=== PATIENT | female | born 1990 | race Caucasian/White ===

== ENCOUNTER → 2017-08-30 | Outpatient (CLI) | payer BC ==
[~2017-08-30] MED LIST: CIPR-225 PO; CIPR500T4 PO; DOCU-143 PO; ESCI20TA45 PO; ETHY1TAB3 PO; HYDR-3812 PO; KETO10TA PO; METR500T PO; METR500T21 PO; NARA2.5T2 PO; TOPI200C6 PO
--- NOTE | 2017-08-30 09:19 | Diagnostic Imaging Report ---
PROCEDURE: US Gallbladder. TECHNIQUE: Multiple real-time grayscale images were obtained over the right upper quadrant in various projections. INDICATION: Right upper quadrant abdominal pain with vomiting. FINDINGS: The pancreas is largely obscured by bowel gas. The liver is fairly homogeneous with no focal lesion. Hepatopedal flow in the portal vein seen. The CBD is 2 mm in caliber. The gallbladder demonstrates no stones or wall thickening. No pericholecystic fluid is seen. Sonographic Hillman sign is reportedly negative. The right kidney is 11.2 CM in length. No hydronephrosis. No fluid collection is seen in the upper abdomen. IMPRESSION: Unremarkable exam. Dictated by: Dictated on workstation # [id number]
== END ==
LOC: RAD 08:25
PROVIDERS: ATTEND Surgery
DX: R10.11 Right upper quadrant pain (principal); R11.10 Vomiting, unspecified
CPT/HCPCS: 76705

== ENCOUNTER → 2017-08-31 | Outpatient (CLI) | payer BC ==
[~2017-08-31] MED LIST changes: +CATHETER FLUSH 10 ML SYR IV PRN
--- NOTE | 2017-08-31 13:05 | Diagnostic Imaging Report ---
EXAMINATION: HIDA with EF measurements Indication: Abdominal pain TECHNIQUE: After the intravenous administration of 5.5 mCi of Tc 99m Choletec, imaging over the abdomen was obtained. This was followed by administration of Ensure orally to stimulate intrinsic CCK secretion, followed by continued imaging with ejection fraction measured. FINDINGS: There is homogeneous uptake in the liver with prompt bile duct and gallbladder filling seen. Bowel activity is seen at 50 minutes. Based on further imaging and gallbladder area of interest activity measurements after the administration of Ensure, the gallbladder ejection fraction is estimated at 30%. IMPRESSION: 1. Normal hepatobiliary uptake and Gallbladder filling. 2. Biliary dyskinesia. Reduced gallbladder ejection fraction. Dictated by: Dictated on workstation # [id number]
--- NOTE | 2017-09-01 08:47 | Physician Query-Final Dx ---
ZAINAB SINGH 09/01/17 0847: Clinic Account Progress/Dx Physician Query: Please specify the site of the patients abd pain thank you Date of Service Aug 31, 2017 at 09:21 BALA VICENTE DO 09/14/17 1133: Clinic Account Progress/Dx DIAGNOSIS: Diagnosis ruq abdominal pain ZAINAB SINGH Sep 01, 2017 08:47 BALA VICENTE DO Sep 14, 2017 11:33
== END ==
LOC: CARD 09:21
PROVIDERS: ATTEND Surgery
DX: K82.8 Other specified diseases of gallbladder (principal)
CPT/HCPCS: 78227

== ENCOUNTER 2017-09-01 09:56 | Outpatient (CLI) | payer BC ==
[~2017-09-01] VITALS: Ht 172.7 cm; Wt 54.4 kg
[~2017-09-01 09:56] MED LIST changes: -CATHETER FLUSH 10 ML SYR IV PRN
[2017-09-02] MEDS ORDERED: DOCU-143 PO (11:31)
[2017-09-02] MEDS ORDERED: HYDR-3812 PO (11:31)
== END 2017-09-01 10:16 ==
LOC: PREOP 09:56
PROVIDERS: ATTEND Surgery
DX: Z01.818 Encounter for other preprocedural examination (principal); K82.8 Other specified diseases of gallbladder

== ENCOUNTER 2017-09-02 08:39 | Day surgery (SDC) | payer BC ==
[~2017-09-02] VITALS: Ht 172.7 cm; Wt 54.4 kg
[2017-09-02] MEDS ORDERED: CLINDAMYCIN 600 MG/NS 50 ML IVPB IV ONE ×2 (09:00)
[2017-09-02 09:12] VITALS: BP 103/74
[2017-09-02] MEDS ORDERED: BUPIVACAINE 0.5% 30 ML (SENSORCAINE) VIAL ONE (09:28)
[2017-09-02] MEDS ORDERED: LIDOCAINE 1% INJ 20 ML (XYLOCAINE) VIAL ONE (09:28)
[2017-09-02] MEDS ORDERED: DEXAMETHASONE 10 MG/ML (DECADRON) 1 ML VIAL ONE (10:10)
[2017-09-02] MEDS ORDERED: ROCURONIUM 50 MG/5 ML (ZEMURON) VIAL IV ONE (10:10)
[2017-09-02] MEDS ORDERED: SEVOFLURANE (ULTANE) 15 ML INHAL SOLN ONE ×4 (10:10→11:28)
[2017-09-02] MEDS ORDERED: ONDANSETRON 4 MG/2 ML (SDV) Z0FRAN ONE (10:10)
[2017-09-02] MEDS ORDERED: MIDAZOLAM 2 MG/2 ML (VERSED) VIAL ONE (10:10)
[2017-09-02] MEDS ORDERED: proPOfol 200 MG/20 ML (DIPRIVAN) VIAL IV ONE ×2 (10:10→12:50)
[2017-09-02] MEDS ORDERED: LIDOCAINE PF 2% 5 ML (XYLOCAINE) VIAL ONE (10:10)
[2017-09-02] MEDS ORDERED: fentaNYL INJECTION 100 MCG/2 ML AMP ONE (10:10)
--- NOTE | 2017-09-02 10:10 | Progress Note-Pre Operative ---
Pre-Operative Progress Note H&P Reviewed The H&P was reviewed, patient examined and no changes noted. Date Seen by Provider: Sep 02, 2017 Time Seen by Provider: 10:09 Date H&P Reviewed: Sep 02, 2017 Time H&P Reviewed: 10:09 Pre-Operative Diagnosis: biliary dyskinesia BALA VICENTE DO Sep 02, 2017 10:09
[2017-09-02 10:15] LABS: MEAN PLATELET VOLUME 10.4 FL (7.4-10.4); RED BLOOD COUNT 4.47 10^6/uL (4.35-5.85); RED CELL DISTRIBUTION WIDTH 12.7 % (10.0-14.5); WHITE BLOOD COUNT 4.6 10^3/uL (4.3-11.0)
[2017-09-02] MEDS: LACTATED RINGERS 1,000 ML IV PRN ×2 (10:45→12:19)
[2017-09-02] MEDS ORDERED: NEOSTIGMINE (BLOXIVERZ ) 1 MG/1ML 10 ML VIAL ONE (11:28)
[2017-09-02] MEDS ORDERED: GLYCOPYRROLATE 0.2 MG/ML (ROBINUL) 2 ML VIAL ONE (11:28)
[2017-09-02] MEDS ORDERED: LACTATED RINGERS 1,000 ML IV ONE (11:28)
--- NOTE | 2017-09-02 11:30 | Progress Note-Post Operative ---
Post-Operative Progess Note Surgeon (s)/Test Specialist (s) Surgeon BALA VICENTE DO Test Specialist: Dr. Tyler Pre-Operative Diagnosis biliary dyskinesia Post-Operative Diagnosis same Procedure & Operative Findings Date of Procedure 09/02/17 Procedure Performed/Findings lap nolan c ioc Anesthesia Type gen Estimated Blood Loss Estimated blood loss (mL): min Specimens/Packing Specimens Removed gallbladder BALA VICENTE DO Sep 02, 2017 11:30
[2017-09-02] MEDS ORDERED: HYDR-3812 PO (11:31)
[2017-09-02] MEDS ORDERED: DOCU-143 PO (11:31)
--- NOTE | 2017-09-02 11:35 | Discharge Inst-Simple/Standard ---
Discharge Inst-Standard Discharge Medications New, Converted or Re-Newed RX: RX on Chart Patient Instructions/Follow Up Plan of Care/Instructions/FU: 2 weeks Puneet Activity as Tolerated: No Discharge Diet: Regular Diet Other Inst to Patient Follow up Appt: Make appointment for 2 weeks. Instructions: No lifting greater than 10 pounds. No strenuous activity. May shower in 24 hours, no tub bath or soaking. Use incentive spirometer at home as directed. No Smoking wound care you have special glue over incisions it will fall off on its own Symptoms to Report: Appetite Changes, Extremity Discoloration, Numbness/Tingling, Swelling Increased , Bleeding Excessive, Eyesight Changes, Pain Increased, Urine Color Change, Constipation(Persistent), Fever over 101 degree F, Pain/Pressure in chest, Urinating Difficulty, Cough Up/Vomit Blood, Heart Beat Irreg/Pounding, Pain/ Pressure in jaw, Vaginal Bleeding Increase, Cramps in feet or legs, Lightheadedness, Pain/Pressure in shoulder, Diarrhea(Persistent), Memory Changes Suddenly, Questions/Concerns, Weight gain consecutive days, Dizziness/ Fainting, Nausea/Vomiting, Shortness of Breath, Weight gain over 2 pounds. If eyes or skin turn yellow notify physician. If questions or concerns contact your physician Or seek help at emergency department. BALA VICENTE DO Sep 02, 2017 11:35
[2017-09-02] MEDS ORDERED: fentaNYL INJECTION 100 MCG/2 ML AMP IVP PRN (12:00)
[2017-09-02] MEDS ORDERED: ONDANSETRON 4 MG/2 ML (SDV) Z0FRAN IVP PRN (12:00)
[2017-09-02] MEDS: morphine INJ 10 MG/ML 1ML (SYR OR VIAL) IVP PRN ×2 (12:01→12:08)
[2017-09-02] MEDS ORDERED: PROMETHAZINE INJ 25 MG/ML (PHENERGAN) AMP ONE (12:14)
[2017-09-02] MEDS: PROMETHAZINE INJ 25 MG/ML (PHENERGAN) AMP IVP PRN ×2 (12:26→12:40)
[2017-09-02 13:21] VITALS: BP 102/55
[2017-09-02] MEDS ORDERED: HYDROcodone/APAP 5 MG/325 MG (LORTAB) TAB ONE (13:38)
[2017-09-02] MEDS ORDERED: HYDROcodone/APAP 5 MG/325 MG (LORTAB) TAB PO PRN (13:45)
[2017-09-02 14:03] VITALS: BP 105/58
--- NOTE | 2017-09-02 17:16 | Diagnostic Imaging Report ---
EXAMINATION: Intraoperative cholangiogram. 3 cc of Omnipaque 300 was administered intravenously. FLUOROSCOPY TIME: Fluoroscopy time utilized was 6 seconds. FINDINGS: There is a normal caliber of the CBD with no filling defect or evidence of obstruction. Prompt passage of contrast into the duodenum is seen. Partially visualized intrahepatic bile ducts appear unremarkable. IMPRESSION: No evidence of CBD stones or obstruction. Dictated by: Dictated on workstation # [id number]
--- NOTE | 2017-09-03 04:56 | OPERATIVE REPORT ---
DATE OF SERVICE: 09/02/2017 PREOPERATIVE DIAGNOSIS: Biliary dyskinesia. POSTOPERATIVE DIAGNOSIS: Biliary dyskinesia. PROCEDURE: Laparoscopic cholecystectomy with intraoperative cholangiogram. SURGEON: Bala Teixeira DO. SAW GRINDER: Dr. Tyler, assisted in retraction, dissection and closure. ESTIMATED BLOOD LOSS: Minimal. COMPLICATIONS: None. ANESTHESIA: General. INDICATIONS: The patient is a 26-year-old female, who has been having right upper quadrant abdominal pain. The patient stated that food makes it worse. She had a normal gallbladder ultrasound and a HIDA scan that had an ejection fraction of 30%, which is consistent with biliary dyskinesia. She understands risks and benefits of procedure and wished to proceed with the procedure. Consent was signed and on the chart. DESCRIPTION OF PROCEDURE: The patient was taken to the operating suite. She was prepped and draped in sterile fashion. Surgical pause was performed. Incision was made at the umbilicus. Cautery was used to taken down to the fascia, which was then scored, grasped and elevated. The abdomen was then entered. A 0 Vicryl suture was placed in [id number] fashion for closure at the end of the case. A balloon trocar was placed, 12 mm in diameter was placed through the incision and pneumoperitoneum was achieved. Under direct visualization of the laparoscope, a 5 mm trocar was placed in the subxiphoid region and two 5 mm trocars were placed in the right upper quadrant. Gallbladder was grasped, elevated. The cystic duct and cystic artery were then dissected around. Clips were placed on the proximal and distal portion of the cystic artery and a clip was placed on the distal portion of the cystic duct. The duct was then partially transected. The arrow catheter was inserted and cholangiogram was then performed. There were no filling defects and contrast made its way into the duodenum without difficulty. The catheter was then removed. Clips were placed on the proximal portion of the cystic duct, and the duct and artery were then completely transected. The hook cautery was then used to remove the gallbladder from the gallbladder fossa achieving hemostasis. Once removed, it was placed in an Endobag and removed through the 12 mm trocar site. The abdomen was then irrigated with copious amounts of irrigation and suctioned. The abdomen was then reinspected. The abdomen was then desufflated. The trocars were removed. The 0 Vicryl which was placed earlier was then closed. The skin was then closed using 4-0 Monocryl. The area was then washed and dried, and SwiftSet was then placed over incisions. The patient tolerated the procedure well without any complications. She was taken to recovery room in stable condition. Job ID: [id number] DocumentID: [id number] Dictated Date: 09/02/2017 21:22:56 Cinema Operator Date: 09/03/2017 04:55:54 Dictated By: BALA TEIXEIRA DO
== END 2017-09-02 14:08 | disposition home or self-care (01) ==
LOC: SDC 08:39
PROVIDERS: ATTEND Surgery
DX: K81.1 Chronic cholecystitis (principal); F41.9 Anxiety disorder, unspecified; G43.909 Migraine, unspecified, not intractable, without status migrainosus; Z79.899 Other long term (current) drug therapy
CPT/HCPCS: 36415; 84703; 85027; 87081; 94664

== ENCOUNTER → 2018-09-15 | Outpatient (CLI) | payer BC ==
[~2018-09-15] MED LIST changes: +ACHD5005 PO; -HYDR-3812 PO; +METR-197 PO; -METR500T21 PO
--- NOTE | 2018-09-15 14:47 | Diagnostic Imaging Report ---
PROCEDURE: US abdomen complete. TECHNIQUE: Multiple Real-time grayscale images were obtained over the abdomen in various projections. INDICATION: Right upper quadrant pain. FINDINGS: The liver parenchyma appears normal. The liver is not enlarged. The bile ducts are not dilated. The common duct measures 3 mm. The portal vein and inferior vena cava appear normal with Doppler sampling. The pancreas is normal. The spleen appears normal. The aorta is normal. Both kidneys are visualized and normal measuring 11 x 4.4 x 4.8 cm on the right and 10.3 x 3.7 x 4.8 cm on the left. There is no ascites. IMPRESSION: Normal abdominal ultrasound. Dictated by: Dictated on workstation # [id number]
== END ==
LOC: RAD 09:32
PROVIDERS: ATTEND Nurse Practitioner Family
DX: R10.11 Right upper quadrant pain (principal)
CPT/HCPCS: 76700

== ENCOUNTER 2018-09-29 05:29 | Outpatient (CLI) | payer BC ==
[~2018-09-29] VITALS: Ht 172.7 cm; Wt 54.4 kg
== END 2018-09-29 13:44 | disposition home or self-care (01) ==
LOC: PREOP 05:29
PROVIDERS: ATTEND Surgery
DX: Z01.818 Encounter for other preprocedural examination (principal)

== ENCOUNTER 2018-10-03 13:54 | Day surgery (SDC) | payer BC ==
[~2018-10-03] VITALS: Ht 172.7 cm; Wt 54.4 kg
--- OUTSIDE RECORDS SUMMARY | 2018-10-03 13:56 | XMS REPORT | Encounter Summary ---
Author Author [facility] Organization [facility] Address Unknown Phone Unavailable Care Team Providers Care Coronary Care Unit Nurse Name Role Phone Ehsan Christy MD Unavailable Trinity Lynch MD PCP Kobe Ramirez MD Unavailable Reason for Referral * Pain Authorization (Routine) Referred By Contact Referred To Contact Status Reason Specialty Diagnoses / [place] [address] [place] [address] New Request Diagnoses Chronic migraine P rocedures CHEMODENERVATION MUSCLE MIGRAINE Reason for Visit * Reason Comments Procedure BTX INJ#11 Migraine * Pain Authorization (Routine) Referred By Contact Referred To Contact Status Reason Specialty Diagnoses / [place] [address] [place] [address] Cmp Neurology Cl [facility] [place] [address] [place] [address] [place] [address] No Auth Needed Neurology Diagnoses Chronic migraine P rocedures CHEMODENERVATION MUSCLE MIGRAINE Encounter Details Care Team Description Date [place] [address] [place] [address] [phone] Chronic migraine (Primary Dx) 09/19/2018 Procedure visit [facility] Neurology [facility] [address] [place] [address] [address] [address] [place] [address] Social History Date Tobacco Use Types Packs/Day Years Used Never Smoker Smokeless Tobacco: Never Used Alcohol Use Drinks/Week oz/Week Comments No 0 Standard 0.0 drinks or equivalent Sex Assigned at Date Recorded Not on file Industry Job Start Date Occupation Not on file Not on file Not on file Travel End Travel History Travel Start No recent travel history available. as of this encounter Last Filed Vital Signs Time Taken Vital Sign Reading 09/19/2018 10:11 AM SALES ATTENDANT Blood Pressure 113/79 09/19/2018 10:11 AM SALES ATTENDANT Pulse 86 - Temperature - - Respiratory Rate - 09/19/2018 10:11 AM SALES ATTENDANT Oxygen Saturation 100% - Inhaled Oxygen - Concentration - Weight - - Height - - Body Mass Index - in this encounter Patient Instructions * Patient Instructions* Kobe Ramirez MD - 09/19/2018 10:33 AM SALES ATTENDANT Please call STEFANY Malloy @ [phone] for any questions or concerns related to Botox. It is patient's responsibility to notify the Patient Registration Department @ [phone] or [phone] of any insurance changes, at least 30 days prior to any Botox injection appointment, to allow for prior authorization update. Do not massage or apply pressure on the treated area for 4hrs after treatment since Botox may migrate from areas of effectiveness. Do not lie down for 4 hours after treatment. This is to avoid the risk of pressure on the treated areas. Avoid rigorous exercise/activities, extensive heat (eg. sauna, hot tub, tanning) and sun exposure, and alcoholic beverages for the first 24 hours after treatment. This may cause temporary redness, swelling, and/or itching at the injection sites. Feel free to shower and go about most other daily activities. You may experience a mild headache after Botox. Should this occur, we recommend you avoid aspirin or aspirin containing products. You may opt instead to use acetaminophen, and/or cool compresses. Cold compresses may be used 10 minutes on 10 minutes off to reduce swelling 2-3 times per day during the first 1-2 days if needed. Note that any bumps or vu will go away in a few hours. If you do develop a bruise it will resolve like any other bruises you may have had in about a week. There is occasionally some mild pain, swelling, itching, or redness at the site of injection similar to most other injections. Redness may last for 1- 2 days, rarely longer. You may apply cool compresses or take acetaminophen to reduce swelling or discomfort. Please call the office with any questions or concerns. -- May do infusions: -- IVF NS 500ml x 1 -- Toradol 30mg IV x 1 -- Magnesium 1g IV x 1 -- Benadryl 25mg IV x 1 -- Compazine 10mg IV x1 +/- Depacon 500mg IV x 1 -- The patient will need a tank wagon driver. -- The patient will need CBC and CMP prior to infusions being scheduled to assure normal kidney, liver, and platelet functions. -- If the patient is unsure about status, will need testing prior to infusions. S ATTENDANT in this encounter Progress Notes * Kobe Ramirez MD - 09/19/2018 10:30 AM SALES ATTENDANT Subjective: Brigida Velez 27 y.o. female is here today for botox for chronic migraines. Botox No. 11. At last visit she had 4 total migraines with some wearing off in the last 1 week prior to next injection. She says that she was down to 2-3 migraines per month until where she had 5 days in a row. Any chance you are or trying to become ? No. Do you understand the risks and benefits of botox for migraine and wish to proceed? Yes. Vitals: 09/19/18 1011 BP: 113/79 Pulse: 86 SpO2: 100% Botox Injection Procedure Previous Injection Date: 06/27/18 Informed consent given verbally to the patient today to include, but not limited to: Most common side effects: neck pain, headache, eyelid ptosis, migraine, muscular weakness, musculoskeletal stiffness, bronchitis, injection-site pain, musculoskeletal pain, myalgia, facial paresis, hypertension, and muscle spasms; infection at injections sites, bruising, bleeding Most serious side effects/risks: anaphylaxis, dysphagia, pneumonia, arrhythmia, myocardial infarction, and in some cases, spontaneous Confirmed: patient, procedure, side, site, safety procedures followed. Performed by: Kobe Ramirez MD. Preparation: no contraindications noted to Botox, possible medications prior to procedure Emla cream 2.5%/2.5% - 2g topically prior to procedure, Tylenol, Preparation of site with alcohol Procedure performed: Indication: Chronic Migraine Headaches Medication: Onabotulinum toxin A 2.5 ml/100 units (Botulinum Toxin 5 units per 0.1mL, 200 units prepared, 155 units used, 45 units of waste) Location: PREEMPT protocol ([facility], and coauthors. Cephalalgia, 2010;30:793) Muscles/Sites Injected A - Bilateral Car Head Liner Installer - 10 units divided in 2 sites B - Midline Procerus - 5 units in 1 site C - Bilateral Frontalis - 20 units divided in 4 sites D - Bilateral Temporalis - 40 units divided in 8 sites E - Bilateral Occipitalis - 30 units divided in 6 sites F - Bilateral Cervical Paraspinals - 20 units divided in 4 sites G - Bilateral Trapezius - 30 units divided in 6 sites Total Dose - 155 Units divided in 31 sites Lot/Expiration: [id number], 01/2021; [id number], 03/2021 Procedure tolerated: well. Complications: none. Diagnosis Chronic Migraine Headaches Course: Progressing as expected. Counseled: Patient/Family, Regarding diagnosis, Regarding treatment, Regarding medications. If any serious side effects occur, the patient has been instructed to go to the nearest emergency room and call our office. Follow up: as scheduled - call with any concerns S ATTENDANT in this encounter Miscellaneous Notes * Addendum Note - Mellissa Ann RN - 09/19/2018 10:30 AM SALES ATTENDANT Addended by: MELLISSA ANN on: 09/19/2018 10:55 AM Modules accepted: Orders S ATTENDANT in this encounter Plan of Treatment Order Schedule Name Priority Associated Diagnoses Ordered: 09/19/2018 [facility] BOTOX Routine Chronic migraine Ordered: 09/19/2018 CHEMODENERVATION MUSCLE MIGRAINE Routine Chronic migraine as of this encounter Visit Diagnoses Diagnosis Chronic migraine - Primary Chronic migraine without aura, without mention of intractable migraine without mention of status migrainosus in this encounter Administered Medications Action Date Dose Rate Site Medication Order MAR Action 09/19/2018 10:44 AM SALES ATTENDANT 200 Units ONAbotulinum toxin (BOTOX) syringe 200 Given Units 200 Units, SEE ADMIN INSTRUCTIONS, ONCE, 1 dose, 09/19/18 at 1045, 155 units given, 45 units wasted, in this encounter
--- OUTSIDE RECORDS SUMMARY | 2018-10-03 13:56 | XMS REPORT | Clinical Summary ---
Author Author [facility] Organization [facility] Address Unknown Phone Unavailable Care Team Providers Care Fence Post Driver Name Role Phone Ehsan Christy MD Unavailable Trinity Lynch MD PCP Kobe Ramirez MD Unavailable Source Comments Some departments are not documenting in the electronic medical record. If you do not see the information that you expected, contact Release of Information in the Health Information Management department at [phone] for further assistance in locating additional records.[facility] Allergies Comments Active Allergy Reactions Severity Noted Date Cefdinir HIVES 08/08/2013 Sulfa (Sulfonamide ANAPHYLAXIS, High 04/01/2016 Antibiotics) HIVES Medications End Date Status Medication Sig Dispensed Refills Start Date Active ethynodiol diac/ethinyl Take 1 Tab by 0 estradiol 1/35 (ZOVIA-28, mouth daily. KELNOR-28, DEMULEN-28) 1 mg/35 mcg tablet Active escitalopram (LEXAPRO) 20 Take 20 mg by 0 mg tablet mouth daily. Active nabumetone (RELAFEN) 500 Take 2 Tabs 60 Tab 2 07/03/201 mg tablet by mouth 3 daily. Active naratriptan (AMERGE) 2.5 Take 2.5 mg 0 mg tablet by mouth as Needed. take 1 tab po at onset of HANNAH and 1 tab in 4 hrs if HANNAH remains. Active promethazine (PHENERGAN) Take 25 mg by 0 25 mg tablet mouth every 8 hours as needed for Nausea. Active ondansetron (ZOFRAN ODT) Take by 0 4 mg rapid dissolve mouth as tablet Needed for Nausea. Active ketorolac (TORADOL) 30 Inject 30 mg 0 mg/mL injection to area(s) as directed as Needed. Active acetaZOLAMIDE (DIAMOX) Take 1 tablet 30 tablet 0 250 mg tablet by mouth 7 twice daily. Active traMADol (ULTRAM) 50 mg Take one 30 tablet 0 tablet tablet by 8 mouth every 12 hours as needed for Pain. 09/19/2018 Discontinued traMADol (ULTRAM) 50 mg Take 1 tablet 20 tablet 0 tablet by mouth 8 every 12 hours as needed for Pain. Status Hospital, Clinic, or Ordered Dose Route Frequency Start End Date Other Facility Date Administered Medication Ended ONAbotulinum toxin 200 Units SEE ADMIN ONCE 09/19/20 (BOTOX) syringe 200 Units 18 8 Active Problems Problem Noted Date Foot pain, right 07/03/2013 Encounters Care Team Description Date Type Specialty Kobe Ramirez MD Chronic migraine (Primary Dx) 09/19/2018 Procedure visit Neurology from Last 3 Months Family History Medical History Relation Name Comments Hypertension Father Cancer Maternal Grandfather Stroke Maternal Grandfather Migraines Mother Cancer Other Stroke Other Dementia Paternal Grandfather Relation Name Status Comments Father Alive Maternal Grandfather Alive Maternal Grandmother Alive Mother Alive Other Paternal Grandfather Alive Paternal Grandmother Alive Social History Date Tobacco Use Types Packs/Day Years Used Never Smoker Smokeless Tobacco: Never Used Tobacco Cessation: Counseling Given: No Alcohol Use Drinks/Week oz/Week Comments No 0 Standard 0.0 drinks or equivalent Sex Assigned at Date Recorded Not on file Industry Job Start Date Occupation Not on file Not on file Not on file Travel End Travel History Travel Start No recent travel history available. Last Filed Vital Signs Time Taken Vital Sign Reading 09/19/2018 10:11 AM FREIGHT INSPECTOR Blood Pressure 113/79 09/19/2018 10:11 AM FREIGHT INSPECTOR Pulse 86 04/01/2016 7:58 AM CDT Temperature 36.6 C (97.9 F) - Respiratory Rate - 09/19/2018 10:11 AM FREIGHT INSPECTOR Oxygen Saturation 100% - Inhaled Oxygen - Concentration 04/04/2018 10:03 AM CDT Weight 55.6 kg (122 lb 9.6 oz) 04/04/2018 10:03 AM CDT Height 172.7 cm (5' 8") 04/04/2018 10:03 AM CDT Body Mass Index 18.64 Plan of Treatment Health Maintenance Due Date Last Done Comments PHYSICAL (COMPREHENSIVE) 1996 EXAM HIV SCREENING 2004 DTAP/TDAP VACCINES (1 - 2007 Tdap) CERVICAL CANCER SCREENING 2010 INFLUENZA VACCINE 05/17/2018 Results Not on filefrom Last 3 Months Insurance Payer Benefit Subscriber ID Type Phone Address Plan / Group [facility] xxxxxxxxxxxx [facility] Advance Directives Patient has advance care planning documents on file. For more information, please contact: [facility] [address] [place] [address]
[2018-10-03] MEDS ORDERED: LACTATED RINGERS 1,000 ML IV ONE (14:24)
[2018-10-03] MEDS ORDERED: LACTATED RINGERS 1,000 ML IV SCH (14:30)
[2018-10-03 14:54] VITALS: BP 109/85
[2018-10-03] MEDS ORDERED: LACTATED RINGERS 1,000 ML IV STA (14:56)
[2018-10-03] MEDS ORDERED: HURRICAINE EXT TUBE (BENZOCAINE) XX PRN (15:00)
[2018-10-03] MEDS ORDERED: PROPOFOL INJECTION 0 ML IV ONE (15:14)
[2018-10-03] MEDS ORDERED: MIDAZOLAM 2 MG/2 ML (VERSED) VIAL ONE ×2 (15:15→15:47)
--- NOTE | 2018-10-03 15:20 | Progress Note-Pre Operative ---
Pre-Operative Progress Note H&P Reviewed The H&P was reviewed, patient examined and no changes noted. Date Seen by Provider: Oct 03, 2018 Time Seen by Provider: 15:20 Date H&P Reviewed: Oct 03, 2018 Time H&P Reviewed: 15:20 Pre-Operative Diagnosis: ruq abdominal pain BALA VICENTE DO Oct 03, 2018 15:20
[2018-10-03] MEDS ORDERED: HURRICAINE EXT TUBE (BENZOCAINE) ONE (15:32)
[2018-10-03] MEDS ORDERED: proPOfol 200 MG/20 ML (DIPRIVAN) VIAL IV ONE (15:47)
[2018-10-03] MEDS ORDERED: PANT40TA2 PO (16:00)
--- NOTE | 2018-10-03 16:01 | Discharge Inst-Simple/Standard ---
Discharge Inst-Standard Discharge Medications New, Converted or Re-Newed RX: Transmitted to Pharmacy Patient Instructions/Follow Up Plan of Care/Instructions/FU: 2weeks harley Activity as Tolerated: Yes Discharge Diet: Regular Diet BALA VICENTE DO Oct 03, 2018 16:01
[2018-10-03 16:10] VITALS: BP 108/63
--- NOTE | 2018-10-03 16:12 | Anesthesia-General Post-Op ---
MAC Patient Condition Mental Status/LOC: Same as Preop Cardiovascular: Satisfactory Nausea/Vomiting: Absent Respiratory: Satisfactory Pain: Controlled Complications: Absent Post Op Complications Complications None Follow Up Care/Instructions Patient Instructions None needed. Anesthesiology Discharge Order Discharge Order Patient is doing well, no complaints, stable vital signs, no apparent adverse anesthesia problems. No complications reported per nursing. ANKIT CRAIG CRNA Oct 03, 2018 16:12
[2018-10-03] MEDS ORDERED: ONDANSETRON 4 MG/2 ML (SDV) Z0FRAN ONE (16:30)
[2018-10-03 16:50] VITALS: BP 118/79
[2018-10-03 16:58] VITALS: BP 118/79
[2018-10-03] MEDS ORDERED: ONDANSETRON 4 MG/2 ML (SDV) Z0FRAN IVP ONE (17:00)
--- NOTE | 2018-10-04 04:19 | OPERATIVE REPORT ---
DATE OF SERVICE: 10/03/2018 PREOPERATIVE DIAGNOSIS: Right upper quadrant abdominal pain. POSTOPERATIVE DIAGNOSIS: Gastritis. PROCEDURE: EGD with biopsy. SURGEON: Bala Teixeira DO ANESTHESIA: Per ROUGH PATCHER. ESTIMATED BLOOD LOSS: None. COMPLICATIONS: None. INDICATIONS: The patient is a 27-year-old female with right upper quadrant abdominal pain. She has had previous cholecystectomy. She understands risks and benefits of procedure and wished to proceed with procedure. Consent was signed and on the chart. DESCRIPTION OF PROCEDURE: The patient was taken to the endoscopy suite, placed in left lateral recumbent position. Timeout was performed. Scope was inserted into the mouth, down the esophagus, stomach and into the duodenum without difficulty. There were no polyps, masses or ulcerations in the duodenum. Scope was slowly retracted back into the stomach where it was further insufflated. Erythematous changes consistent with gastritis and a biopsy of the antrum was obtained just very irritated mucosa. Scope was retroflexed noting no other pathology except for the gastritis. Scope was then returned to its normal position, slowly withdrawn to the distal esophagus, had normal appearance. No polyps, mass or ulcerations. The scope was slowly retracted back until completely removed. The patient tolerated procedure well without complications. She was taken to the recovery room in stable condition. RECOMMENDATIONS: The patient will be started on Protonix 40 mg daily. We will see how she is doing in two weeks. We will await biopsy results. Further recommendations pending. Job ID: [id number] DocumentID: [id number] Dictated Date: 10/03/2018 16:03:05 Club Concierge Date: 10/04/2018 04:19:11 Dictated By: BALA TEIXEIRA DO
== END 2018-10-03 16:58 | disposition home or self-care (01) ==
LOC: ENDO 13:54
PROVIDERS: ATTEND Surgery
DX: K29.70 Gastritis, unspecified, without bleeding (principal); F41.9 Anxiety disorder, unspecified; Z79.899 Other long term (current) drug therapy
CPT/HCPCS: 84703

== ENCOUNTER → 2020-01-14 | Outpatient (CLI) | payer BC ==
[~2020-01-14] MED LIST changes: +METR-145 PO; -METR-197 PO; +PANT40TA2 PO
[2020-01-14 14:16] LABS: BASOPHILS % (AUTO) 0 % (0-10); EOSINOPHILS # (AUTO) 0.1 10^3/uL (0.0-0.3); EOSINOPHILS % (AUTO) 2 % (0-10); HEMATOCRIT 43 % (35-52); LYMPHOCYTES # (AUTO) 2.8 X 10^3 (1.0-4.0); LYMPHOCYTES % (AUTO) 36 % (12-44); MEAN CORPUSCULAR HEMOGLOBIN 29 PG (25-34); MEAN CORPUSCULAR HGB CONC 35 G/DL (32-36); MEAN CORPUSCULAR VOLUME 84 FL (80-99); MEAN PLATELET VOLUME 9.9 FL (7.4-10.4); MONOCYTES # (AUTO) 0.3 X 10^3 (0.0-1.0); MONOCYTES % (AUTO) 4 % (0-12); NEUTROPHILS # (AUTO) 4.5 X 10^3 (1.8-7.8); NEUTROPHILS % (AUTO) 58 % (42-75); PLATELET COUNT 240 10^3/uL (130-400); RED CELL DISTRIBUTION WIDTH 13.3 % (10.0-14.5); WHITE BLOOD COUNT 7.7 10^3/uL (4.3-11.0)
--- NOTE | 2020-01-14 15:08 | Diagnostic Imaging Report ---
EXAMINATION: Chest, PA and lateral views INDICATION: Respiratory symptoms. Concern for coronavirus. COMPARISON: 09/03/2013 FINDINGS: The lungs are clear and the pulmonary vasculature is normal. No pneumothorax or pleural effusion. Heart size and mediastinal contours are normal. No acute osseous abnormality is identified. IMPRESSION: Normal exam. No radiographic evidence of acute chest disease. Dictated by: Dictated on workstation # [id number]
== END ==
LOC: RAD 14:03
PROVIDERS: ATTEND Nurse Practitioner Family
DX: R06.00 Dyspnea, unspecified (principal); R05 Cough
CPT/HCPCS: 36415; 71046; 85025; 86141; 87430; 87635; 87804

== ENCOUNTER → 2020-01-17 | Outpatient (CLI) | payer BC ==
[~2020-01-17] MED LIST changes: +HOLD METFORMIN - RECEIVED CONTRAST 20 ML VIAL IV SCH; +IOHEXOL 350 MG/ML 100 ML (OMNIPAQUE 350) VIAL IV ONE; +NS 100 ML (IVPB) BAG IV ONE
--- NOTE | 2020-01-17 10:55 | Diagnostic Imaging Report ---
PROCEDURE: CT angiography of the chest with contrast. TECHNIQUE: Multiple contiguous axial images were obtained through the chest after uneventful bolus administration of intravenous contrast. 3D reconstructed CTA MIP acquisitions were also performed. Auto Exposure Controls were utilized during the CT exam to meet ALARA standards for radiation dose reduction. INDICATION: Cough, dyspnea COMPARISON: Radiograph dated 01/14/2020 FINDINGS: No significant adenopathy within the chest. No aneurysmal dilatation of the thoracic aorta. No aortic dissection. The heart is within normal limits in size. No pericardial effusion. No pleural effusion. No pneumothorax. Calcific granuloma within the left upper lobe. The lungs are otherwise clear. The trachea is patent. No significant filling defects within the central or segmental pulmonary arteries. The visualized upper abdomen is unremarkable. No acute osseous abnormality. IMPRESSION: No acute abnormality. In particular, no significant pulmonary embolus. Dictated by: Dictated on workstation # [id number]
== END ==
LOC: RAD 10:10
PROVIDERS: ATTEND Nurse Practitioner Family
DX: R05 Cough (principal); R06.00 Dyspnea, unspecified
CPT/HCPCS: 71275

== ENCOUNTER → 2020-02-26 | Outpatient (CLI) | payer BC ==
[~2020-02-26] MED LIST changes: -HOLD METFORMIN - RECEIVED CONTRAST 20 ML VIAL IV SCH; -IOHEXOL 350 MG/ML 100 ML (OMNIPAQUE 350) VIAL IV ONE; -NS 100 ML (IVPB) BAG IV ONE
== END ==
LOC: LAB 16:23
PROVIDERS: ATTEND Nurse Practitioner Family
DX: Z20.828 Contact with and (suspected) exposure to other viral communicable diseases (principal); Z87.09 Personal history of other diseases of the respiratory system
CPT/HCPCS: 36415

== ENCOUNTER 2020-07-03 10:52 | Outpatient (RCR) | payer BC | END 2020-10-01 | disposition home or self-care (01) | LOC: CARD 10:52 | PROVIDERS: ATTEND Internal Medicine Interventional Cardiology | DX: I47.1 Supraventricular tachycardia (principal); R00.2 Palpitations; R55 Syncope and collapse | CPT/HCPCS: 93306 ==

== ENCOUNTER → 2020-08-08 | Outpatient (CLI) | payer BC ==
[2020-08-08 14:55] LABS: BASOPHILS % (AUTO) 1 % (0-10); EOSINOPHILS # (AUTO) 0.1 10^3/uL (0.0-0.3); EOSINOPHILS % (AUTO) 1 % (0-10); HEMATOCRIT 41 % (35-52); HEMOGLOBIN 13.4 g/dL (11.5-16.0); LYMPHOCYTES # (AUTO) 1.9 10^3/uL (1.0-4.0); LYMPHOCYTES % (AUTO) 28 % (12-44); MEAN CORPUSCULAR HEMOGLOBIN 29 pg (25-34); MEAN CORPUSCULAR HGB CONC 33 g/dL (32-36); MEAN CORPUSCULAR VOLUME 87 fL (80-99); MEAN PLATELET VOLUME 9.7 fL (9.0-12.2); MONOCYTES # (AUTO) 0.3 10^3/uL (0.0-1.0); MONOCYTES % (AUTO) 4 % (0-12); NEUTROPHILS # (AUTO) 4.4 10^3/uL (1.8-7.8); NEUTROPHILS % (AUTO) 66 % (42-75); PLATELET COUNT 259 10^3/uL (130-400); WHITE BLOOD COUNT 6.6 10^3/uL (4.3-11.0)
[2020-08-08 15:17] LABS: ALANINE AMINOTRANSFERASE 12 U/L (0-55); ALBUMIN 4.3 GM/DL (3.2-4.5); ALKALINE PHOSPHATASE 26 U/L (40-136); BILIRUBIN,TOTAL 0.4 MG/DL (0.1-1.0); BUN/CREATININE RATIO 17; CALCIUM 8.7 MG/DL (8.5-10.1); CARBON DIOXIDE 25 MMOL/L (21-32); CHLORIDE 108 MMOL/L (98-107); CREATININE SERUM 0.83 MG/DL (0.60-1.30); GFR ESTIMATED > 60; GLUCOSE 128 MG/DL (70-105); MAGNESIUM 2.1 MG/DL (1.6-2.4); POTASSIUM 3.6 MMOL/L (3.6-5.0); SODIUM 141 MMOL/L (135-145)
[2020-08-08 15:52] LABS: ERYTHROCYTE SEDIMENTATION RATE 7 MM/HR (0-20)
== END ==
LOC: LAB 14:37
PROVIDERS: ATTEND Internal Medicine Cardiovascular Disease
DX: G43.709 Chronic migraine without aura, not intractable, without status migrainosus (principal); R55 Syncope and collapse; R00.2 Palpitations; R00.0 Tachycardia, unspecified
CPT/HCPCS: 36415; 80053; 83735; 84443; 85025; 85652

== ENCOUNTER 2020-08-12 12:00 | Outpatient (CLI) | payer BC ==
[2020-08-12] VITALS (20 sets, daily range): BP systolic 88–111; BP diastolic 61–81
[~2020-08-12] VITALS: Ht 172.7 cm; Wt 59.0 kg
--- NOTE | 2020-08-12 09:20 | NUR ---
liter of ns infused, iv dc'd intact on removal. ambulatory on dc with script for compression stockings. loop recorder cancelled at this time per Ena after discussing syncopal episode with
[~2020-08-12 12:00] MED LIST changes: +ATROPINE INJECTION 1 MG/10 ML SYR (ABBOTT) ONE; +NS IV 1000 ML 1,000 ML IV SCH; +NS IV 1000 ML 1,000 ML ONE
--- NOTE | 2020-08-12 15:03 | OPERATIVE REPORT ---
DATE OF SERVICE: 08/12/2020 TILT TABLE TEST ORDERING PHYSICIAN: Barb Sawyer MD, CHRISTINE, FACP, FACC CLINICAL DIAGNOSIS: Syncope. Baseline blood pressure was measured. She was attached to a bus monitor. She was placed on a tilt table that was then tilted to 70 degrees with her head up. This position was maintained. Blood pressure was checked every minute. Heart rate and rhythm were monitored continuously. At approximately 28 minutes, her heart rate had risen to 138 beats per minute and the systolic blood pressure dropped to 88 mmHg. At that time, she had a syncopal episode. The table was made flat and she came around quickly. CONCLUSIONS: Tilt table study positive for vasodepressor syncope. Job ID: [id number] DocumentID: [id number] Dictated Date: 08/12/2020 10:10:46 [employer] Mechanic Date: 08/12/2020 15:03:01 Dictated By: BARB SAWYER MD, CHRISTINE, FACP, FACC,
== END 2020-08-12 12:01 | disposition home or self-care (01) ==
LOC: CATH 12:00
PROVIDERS: ATTEND Internal Medicine Cardiovascular Disease
DX: R55 Syncope and collapse (principal)
CPT/HCPCS: 93660

== ENCOUNTER 2020-09-16 09:00 | Day surgery (SDC) | payer BC ==
[~2020-09-16] VITALS: Ht 172 cm; Wt 58.0 kg
[2020-09-16 08:03] VITALS: BP 120/87
[~2020-09-16 09:00] MED LIST changes: -ATROPINE INJECTION 1 MG/10 ML SYR (ABBOTT) ONE; +LIDOCAINE 1% INJ 20 ML 20 ML VIAL ONE; -NS IV 1000 ML 1,000 ML IV SCH; -NS IV 1000 ML 1,000 ML ONE
--- NOTE | 2020-09-16 11:54 | OPERATIVE REPORT ---
DATE OF SERVICE: 09/16/2020 PREOPERATIVE DIAGNOSIS: Syncope. PROCEDURE: Implantable loop recorder implantation. INDICATIONS: The patient is a 29-year-old lady who has been experiencing near syncope. Implantable loop recorder implantation was carried out after having obtained an informed consent. DESCRIPTION OF PROCEDURE: [facility] The left prepectoral area was prepared and draped in the usual sterile fashion. Lidocaine 1% was used for local anesthesia The tools provided with the [employer] Reveal LINQ device were used to make a subcutaneous pocket anterior to the third and the fourth intercostal space into which the device was placed and the wound edges were closed using Steri-Strips and Dermabond. She tolerated the procedure well. Job ID: [id number] DocumentID: [id number] Dictated Date: 09/16/2020 09:08:27 Website Admin Date: 09/16/2020 11:53:50 Dictated By: NIALL LOVELACE MD, MA, FACP, FACC, MTDD
== END 2020-09-16 09:10 | disposition home or self-care (01) ==
LOC: CATH 09:00
PROVIDERS: ATTEND Internal Medicine Cardiovascular Disease
DX: R55 Syncope and collapse (principal); F41.9 Anxiety disorder, unspecified; G43.709 Chronic migraine without aura, not intractable, without status migrainosus; I47.1 Supraventricular tachycardia; I49.3 Ventricular premature depolarization; Z79.899 Other long term (current) drug therapy; Z88.2 Allergy status to sulfonamides; Z88.1 Allergy status to other antibiotic agents; Z90.49 Acquired absence of other specified parts of digestive tract; Z83.3 Family history of diabetes mellitus; Z82.49 Family history of ischemic heart disease and other diseases of the circulatory system
CPT/HCPCS: 33285; C1764

== ENCOUNTER → 2020-10-23 | Outpatient (CLI) | payer BC ==
[~2020-10-23] MED LIST changes: -LIDOCAINE 1% INJ 20 ML 20 ML VIAL ONE
--- NOTE | 2020-10-23 13:56 | Diagnostic Imaging Report ---
Indication: Right breast lump. No prior mammograms are available for comparison. 2-D and 3-D bilateral diagnostic mammography was performed with CAD. Both breasts are heterogeneously dense, limiting the sensitivity of mammography. No mass or malignant appearing microcalcifications are seen. Axillae are unremarkable. IMPRESSION: BI-RADS Category 0 No mammographic features suspicious for malignancy are identified. Even so, directed sonographic interrogation of the area of lump in the right breast is recommended and will be performed today. ACR BI-RADS Category 0: Incomplete. (Needs additional imaging evaluation). Result letter will be mailed to the patient. Note: At least 10% of breast cancer is not imaged by mammography. Dictated by: Dictated on workstation # [id number]
--- NOTE | 2020-10-23 14:46 | Diagnostic Imaging Report ---
Indication: Right breast lump. Correlation is made with diagnostic mammogram earlier same day. Interrogation area of lump in the upper right breast retroareolar region was performed. No sonographic abnormality is identified. No solid or cystic mass is detected. IMPRESSION: BI-RADS Category 1 No sonographic abnormality is detected. Continued clinical and self breast exam is recommended to confirm stability of the palpable abnormality in the right breast. ACR BI-RADS Category 1: Negative. Dictated by: Dictated on workstation # [id number]
== END ==
LOC: RAD 13:00
PROVIDERS: ATTEND Family Medicine
DX: N63.10 Unspecified lump in the right breast, unspecified quadrant (principal)
CPT/HCPCS: 76642; 77066; G0279; 77062

== ENCOUNTER → 2020-11-06 | Outpatient (CLI) | payer BC ==
[~2020-11-06] MED LIST changes: -ESCI20TA45 PO; +ESCI20TA56 PO
== END ==
LOC: LAB 16:24
DX: Z20.822 Contact with and (suspected) exposure to COVID-19 (principal)
CPT/HCPCS: 87635

== ENCOUNTER → 2021-03-31 | Outpatient (CLI) | payer BC ==
[~2021-03-31] MED LIST changes: -CIPR500T4 PO; +CIPR500T5 PO; +ESCI20TA39 PO; -ESCI20TA56 PO
[2021-03-31 12:36] LABS: ALBUMIN 4.1 GM/DL (3.2-4.5); BILIRUBIN,DIRECT 0.2 MG/DL (0.0-0.3); BILIRUBIN,INDIRECT 0.1 MG/DL; BILIRUBIN,TOTAL 0.3 MG/DL (0.1-1.0); TOTAL PROTEIN 6.9 GM/DL (6.4-8.2)
== END ==
LOC: LAB 11:46
DX: B35.1 Tinea unguium (principal)
CPT/HCPCS: 36415; 80076

== ENCOUNTER → 2021-04-26 | Outpatient (CLI) | payer BC | LOC: LAB 11:08 | PROVIDERS: ATTEND Emergency Medicine | DX: Z20.822 Contact with and (suspected) exposure to COVID-19 (principal) | CPT/HCPCS: 87636 ==

== ENCOUNTER → 2021-05-12 | Outpatient (CLI) | payer BC ==
[~2021-05-12] MED LIST changes: +PRD20T PO
--- NOTE | 2021-05-12 14:29 | Diagnostic Imaging Report ---
PROCEDURE: US Non-OB pelvis comp/trans. TECHNIQUE: Multiple real-time grayscale images were obtained of the pelvis in various projections endovaginally. Transabdominal imaging was also performed. INDICATION: Right lower quadrant pain for four days. COMPARISON: None. FINDINGS: Transabdominal: The uterus and adnexa have an unremarkable transabdominal appearance. Transvaginal images were obtained for additional characterization. Transvaginal: The uterus is anteverted and measures 6.3 x 3.3 x 3.8 cm. The endometrial stripe measures 0.3 cm and has a normal appearance. The ovaries are not well seen due to overlying bowel gas. No evidence of adnexal mass. No free fluid in the pelvis. IMPRESSION: 1. Unremarkable sonographic appearance of the uterus. The ovaries are not well visualized due to overlying bowel gas; however, no evidence of adnexal mass or free fluid is seen in the pelvis. Recommend follow-up as indicated. Dictated by: Dictated on workstation # [id number]
== END ==
LOC: RAD 09:30
PROVIDERS: ATTEND Nurse Practitioner Family
DX: R10.31 Right lower quadrant pain (principal); Z87.42 Personal history of other diseases of the female genital tract
CPT/HCPCS: 76830; 76856

== ENCOUNTER 2021-05-13 11:38 | Emergency (ER) | payer BC ==
[~2021-05-13] VITALS: Ht 172.7 cm; Wt 54.4 kg
[~2021-05-13 11:38] MED LIST changes: -PRD20T PO
[2021-05-13] MEDS ORDERED: KETOROLAC 30 MG/ML VIAL IVP ONE (11:45)
--- NOTE | 2021-05-13 11:49 | ED Abdominal Pain ---
General Chief Complaint: Abdominal/GI Problems Stated Complaint: ABD PAIN Source of Information: Patient Exam Limitations: No Limitations (KATALINA MACHUCA APRN) History of Present Illness Date Seen by Provider: May 13, 2021 Time Seen by Provider: 11:48 Initial Comments With right-sided suprapubic pain onset Tuesday that has gotten progressively worse. She had a pelvic ultrasound yesterday which failed to visualize the ovaries or adnexa. Timing/Duration: 2-3 Days Severity/Quality: Moderate Location: RLQ Radiation: No Radiation Activities at Onset: None Associated Symptoms: Denies Symptoms (KATALINA MACHUCA APRN) Allergies and Home Medications Allergies Coded Allergies: Cephalosporins (Unverified Allergy, Unknown, 09/23/15) Sulfa (Sulfonamide Antibiotics) (Unverified Allergy, Unknown, 09/22/15) Home Medications Ciprofloxacin HCl 500 Mg Tablet, 500 MG PO BID Prescribed by: KATALINA MACHUCA on 05/13/21 1330 Ethynodiol D-Ethinyl Estradiol 1 Each Tablet, 1 TAB PO HS, (Reported) Hydrocodone/Acetaminophen 1 Each Tablet, 1 TAB PO Q4H PRN for PAIN-MODERATE (5- 7) Prescribed by: KATALINA MACHUCA on 05/13/21 1331 Metronidazole 500 Mg Tablet, 500 MG PO TID Prescribed by: KATALINA MACHUCA on 05/13/21 1330 Naratriptan HCl 2.5 Mg Tablet, 2.5 MG PO UD PRN for MIGRAINE, (Reported) TAKE 1 (2.5MG) TABLET AT ONSET OF MIGRAINE, MAY REPEAT 1 DOSE IN 4 HOURS IF SYMPTOMS PERSIST. Pantoprazole Sodium 40 Mg Tablet.dr, 40 MG PO DAILY Prescribed by: BALA VICENTE on 10/03/18 1600 Prednisone 20 Mg Tab, 40 MG PO DAILY Prescribed by: KATALINA MACHUCA on 05/13/21 1330 Patient Home Medication List Home Medication List Reviewed: Yes (KATALINA MACHUCA APRN) Review of Systems Review of Systems Constitutional: see HPI EENTM: No Symptoms Reported Respiratory: No Symptoms Reported Cardiovascular: No Symptoms Reported Gastrointestinal: See HPI, Abdominal Pain, Nausea Genitourinary: No Symptoms Reported Musculoskeletal: no symptoms reported Skin: no symptoms reported Psychiatric/Neurological: No Symptoms Reported Endocrine: No Symptoms Reported Hematologic/Lymphatic: No Symptoms Reported (KATALINA MACHUCA APRN) Past Arpgipo-Siysxo-Jcwuor Hx Immunizations Up To Date Tetanus Booster (TDap): More than 5yrs PED Vaccines UTD: No (KATALINA MACHUCA APRN) Seasonal Allergies Seasonal Allergies: Yes (KATALINA MACHUCA APRN) Past Medical History Appendectomy, Gallbladder, Orthopedic Respiratory: No Cardiac: Yes (INAPPROPRIATE TACHYCARDIA) Syncope Neurological: Yes Concussion, Headaches /Migraines Reproductive Disorders: Yes (ovarian cysts) Female Reproductive Disorders: Endometriosis, Ovarian Cyst Sexually Transmitted Disease: No Genitourinary: No Gastrointestinal: Yes Gall Bladder Disease Cancer: No Anxiety Blood Disorders: No Adverse Reaction/Blood Tranf: No (KATALINA MACHUCA APRN) Family Medical History No Pertinent Family Hx (KATALINA MACHUCA APRN) Physical Exam Vital Signs Vital Signs - First Documented 05/13/21 11:40 Temp 36.5 Pulse 98 Resp 18 B/P (MAP) 135/95 (108) Pulse Ox 98 O2 Delivery Room Air (LESTER HUMMEL MD) Vital Signs Capillary Refill : (KATALINA MACHUCA APRN) Height/Weight/BMI Height: 5'8.00" Weight: 120lbs. 0.0oz. [id number]; 19.60 BMI Method:Stated General Appearance: WD/WN, no apparent distress, thin HEENT: PERRL/EOMI, normal ENT inspection Respiratory: no respiratory distress, no accessory muscle use Cardiovascular: regular rate, rhythm, no murmur Gastrointestinal: normal bowel sounds, non tender, soft Extremities: normal range of motion, non-tender Neurologic/Psychiatric: alert, normal mood/affect, oriented x 3 Skin: normal color, warm/dry (KATALINA MACHUCA APRN) Progress/Results/Core Measures Results/Orders Lab Results Laboratory Tests Test 05/13/21 11:49 05/13/21 12:03 Range/Units White Blood Count 4.7 4.3-11.0 10^3/uL Red Blood Count 5.12 H 3.80-5.11 10^6/uL Hemoglobin 14.6 11.5-16.0 g/dL Hematocrit 44 35-52 % Mean Corpuscular Volume 87 80-99 fL Mean Corpuscular Hemoglobin 29 25-34 pg Mean Corpuscular Hemoglobin Concent 33 32-36 g/dL Red Cell Distribution Width 12.2 10.0-14.5 % Platelet Count 211 130-400 10^3/uL Mean Platelet Volume 9.2 9.0-12.2 fL Immature Granulocyte % (Auto) 0 % Neutrophils (%) (Auto) 59 42-75 % Lymphocytes (%) (Auto) 31 12-44 % Monocytes (%) (Auto) 9 0-12 % Eosinophils (%) (Auto) 1 0-10 % Basophils (%) (Auto) 0 0-10 % Neutrophils # (Auto) 2.8 1.8-7.8 10^3/uL Lymphocytes # (Auto) 1.5 1.0-4.0 10^3/uL Monocytes # (Auto) 0.4 0.0-1.0 10^3/uL Eosinophils # (Auto) 0.0 0.0-0.3 10^3/uL Basophils # (Auto) 0.0 0.0-0.1 10^3/uL Immature Granulocyte # (Auto) 0.0 0.0-0.1 10^3/uL Sodium Level 141 135-145 MMOL/L Potassium Level 3.9 3.6-5.0 MMOL/L Chloride Level 105 98-107 MMOL/L Carbon Dioxide Level 22 21-32 MMOL/L Anion Gap 14 5-14 MMOL/L Blood Urea Nitrogen 13 7-18 MG/DL Creatinine 0.78 0.60-1.30 MG/DL Estimat Glomerular Filtration Rate 86 BUN/Creatinine Ratio 17 Glucose Level 80 70-105 MG/DL Calcium Level 9.2 8.5-10.1 MG/DL C-Reactive Protein High Sensitivity 6.77 H 0.00-0.50 MG/DL Serum Test, Qualitative NEGATIVE NEGATIVE Urine Color YELLOW Urine Clarity CLEAR Urine pH 6.0 5-9 Urine Specific [place] 1.020 1.016-1.022 Urine Protein TRACE H NEGATIVE Urine Glucose (UA) NEGATIVE NEGATIVE Urine Ketones 2+ H NEGATIVE Urine Nitrite NEGATIVE NEGATIVE Urine Bilirubin 1+ H NEGATIVE Urine Urobilinogen 0.2 < = 1.0 MG/DL Urine Leukocyte Esterase TRACE H NEGATIVE Urine RBC (Auto) 2+ H NEGATIVE Urine RBC 5-10 H /HPF Urine WBC 0-2 /HPF Urine Squamous Epithelial Cells NONE /HPF Urine Crystals NONE /LPF Urine Bacteria FEW H /HPF Urine Casts NONE /LPF Urine Mucus NEGATIVE /LPF Urine Culture Indicated NO (LESTER HUMMEL MD) Vital Signs/I&O 7/28/21 7/28/21 11:40 13:50 Temp 36.5 Pulse 98 91 Resp 18 18 B/P (MAP) 135/95 (108) 128/88 Pulse Ox 98 98 O2 Delivery Room Air Room Air (LESTER HUMMEL MD) Departure Communication (Admissions) NAME: JOSUE JONES [facility] REC#: [id number] PT STATUS: REG ER : 1990 PHYSICIAN: KATALINA MACHUCA [employer] MACHINE OPERATOR ADMIT DATE: 05/13/21/ER Draft Date of Exam:05/13/21 CT ABDOMEN/PELVIS W CLINICAL INDICATION: Patient with right lower quadrant abdominal pain since Tuesday and getting worse. EXAM: Axial CT scan of the abdomen and pelvis performed with 68 mL of Omnipaque 350 IV contrast. Sagittal and coronal reformatted images are created. Auto Exposure Controls were utilized during the CT exam to meet ALARA standards for radiation dose reduction. COMPARISON: CT scan of the abdomen and pelvis with contrast dated 09/22/2015. FINDINGS: Visualized lung bases are clear. Bones show no significant abnormality. The gallbladder has been surgically resected in the interim. The liver, spleen, pancreas and adrenal glands are unremarkable. Both kidneys are unremarkable with no hydronephrosis, mass, or stone visualized. The bladder is decompressed with no gross abnormality visualized. There is a 4 mm calcification which has developed in the interim which appears anterior to the uterine wall which may represent a phlebolith. There is no intra-abdominal free air or free fluid. Interval changes of appendectomy are noted. There is a small amount of stool throughout the colon. There is wall thickening involving the cecum and proximal ascending colon. Terminal ileal region is grossly unremarkable. There is no adjacent fat stranding. This may represent colitis. The wall thickening in this region appears to have progressed in the interim. Remainder of the intestines are unremarkable. There is no intestinal obstruction. Stomach is unremarkable and predominantly decompressed. There is no lymphadenopathy. Extra abdominal and extra pelvis soft tissue structures are unremarkable. IMPRESSION: 1: There is wall thickening of the cecum and proximal ascending colon with no adjacent fat stranding. This may represent colitis. Terminal ileum is grossly unremarkable as visualized. This finding has progressed compared to the prior study. There are interval appendectomy changes. 2: The remainder of the abdominal and pelvic structures show no other concern for acute abnormality. 3: Gallbladder is surgically resected in the interim. Dictated on workstation # [id number] Dict: 05/13/21 1310 Trans: 05/13/21 1323 [facility] [id number] Interpreted by: ARELIS TOTH MD Electronically signed by: (KATALINA MACHUCA APRN) Impression Primary Impression: Colitis Disposition: 01 HOME, SELF-CARE Condition: Stable Departure-Patient Inst. Decision time for Depature: 13:29 (KATALINA MACHUCA APRN) Referrals: ROQUE CHAPMAN DO (PCP/Family) Primary Care Physician Patient Instructions: Colitis (DC) Add. Discharge Instructions: 1. Medication as directed 2. Follow-up with your doctor next week 3. All discharge instructions reviewed with patient and/or family. Voiced understanding. Scripts Hydrocodone/Acetaminophen (Hydrocodone-Acetamin 5-325 mg) 1 Each Tablet 1 TAB PO Q4H PRN for PAIN-MODERATE (5-7), #10 TAB Prov: KATALINA MACHUCA APRN 05/13/21 Prednisone (Prednisone) 20 Mg Tab 40 MG PO DAILY, #8 TAB 0 Refills Prov: KATALINA MACHUCA APRN 05/13/21 Metronidazole (Flagyl) 500 Mg Tablet 500 MG PO TID, #15 TAB Prov: KATALINA MACHUCA APRN 05/13/21 Ciprofloxacin HCl (Ciprofloxacin HCl) 500 Mg Tablet 500 MG PO BID, #10 TAB Prov: KATALINA MACHUCA APRN 05/13/21 ATTENDING PHYSICIAN NOTE: I was physically present as attending physician in the emergency department during the care of this patient, but I was not directly involved in the decision making or delivery of care for this patient. (LESTER HUMMEL MD) KATALINA MACHUCA APRN May 13, 2021 11:49 LESTER HUMMEL MD May 14, 2021 07:09
[2021-05-13 11:57] LABS: BASOPHILS % (AUTO) 0 % (0-10); EOSINOPHILS % (AUTO) 1 % (0-10); HEMATOCRIT 44 % (35-52); HEMOGLOBIN 14.6 g/dL (11.5-16.0); LYMPHOCYTES # (AUTO) 1.5 10^3/uL (1.0-4.0); LYMPHOCYTES % (AUTO) 31 % (12-44); MEAN CORPUSCULAR HEMOGLOBIN 29 pg (25-34); MEAN CORPUSCULAR HGB CONC 33 g/dL (32-36); MEAN CORPUSCULAR VOLUME 87 fL (80-99); MEAN PLATELET VOLUME 9.2 fL (9.0-12.2); MONOCYTES # (AUTO) 0.4 10^3/uL (0.0-1.0); MONOCYTES % (AUTO) 9 % (0-12); NEUTROPHILS # (AUTO) 2.8 10^3/uL (1.8-7.8); NEUTROPHILS % (AUTO) 59 % (42-75); PLATELET COUNT 211 10^3/uL (130-400); WHITE BLOOD COUNT 4.7 10^3/uL (4.3-11.0)
[2021-05-13 12:10] LABS: CLARITY,URINE CLEAR; COLOR,URINE YELLOW; GLUCOSE, URINE (UA) NEGATIVE (NEGATIVE); KETONES,URINE 2+ (NEGATIVE); LEUKOCYTE ESTERASE ,URINE TRACE (NEGATIVE); NITRITE,URINE NEGATIVE (NEGATIVE); PROTEIN,URINE TRACE (NEGATIVE)
[2021-05-13 12:15] LABS: POTASSIUM 3.9 MMOL/L (3.6-5.0)
[2021-05-13] MEDS ORDERED: HOLD METFORMIN - RECEIVED CONTRAST 20 ML VIAL IV SCH (12:15)
[2021-05-13] MEDS ORDERED: IOHEXOL 350 MG/ML 100 ML (OMNIPAQUE 350) VIAL IV ONE (12:15)
[2021-05-13] MEDS ORDERED: NS 100 ML (IVPB) BAG IV ONE (12:15)
[2021-05-13 12:16] LABS: CALCIUM 9.2 MG/DL (8.5-10.1)
[2021-05-13 12:20] LABS: CREATININE SERUM 0.78 MG/DL (0.60-1.30)
[2021-05-13 12:29] LABS: BACTERIA,URINE FEW /HPF; BILIRUBIN,URINE 1+ (NEGATIVE); WBC,URINE 0-2 /HPF
[2021-05-13] MEDS ORDERED: fentaNYL INJ 100 MCG/2 ML AMP ONE (13:13)
[2021-05-13] MEDS ORDERED: fentaNYL INJ 100 MCG/2 ML AMP IVP ONE (13:15)
--- NOTE | 2021-05-13 13:23 | Diagnostic Imaging Report ---
CLINICAL INDICATION: Patient with right lower quadrant abdominal pain since Tuesday and getting worse. EXAM: Axial CT scan of the abdomen and pelvis performed with 68 mL of Omnipaque 350 IV contrast. Sagittal and coronal reformatted images are created. Auto Exposure Controls were utilized during the CT exam to meet ALARA standards for radiation dose reduction. COMPARISON: CT scan of the abdomen and pelvis with contrast dated 09/22/2015. FINDINGS: Visualized lung bases are clear. Bones show no significant abnormality. The gallbladder has been surgically resected in the interim. The liver, spleen, pancreas and adrenal glands are unremarkable. Both kidneys are unremarkable with no hydronephrosis, mass, or stone visualized. The bladder is decompressed with no gross abnormality visualized. There is a 4 mm calcification which has developed in the interim which appears anterior to the uterine wall which may represent a phlebolith. There is no intra-abdominal free air or free fluid. Interval changes of appendectomy are noted. There is a small amount of stool throughout the colon. There is wall thickening involving the cecum and proximal ascending colon. Terminal ileal region is grossly unremarkable. There is no adjacent fat stranding. This may represent colitis. The wall thickening in this region appears to have progressed in the interim. Remainder of the intestines are unremarkable. There is no intestinal obstruction. Stomach is unremarkable and predominantly decompressed. There is no lymphadenopathy. Extra abdominal and extra pelvis soft tissue structures are unremarkable. IMPRESSION: 1: There is wall thickening of the cecum and proximal ascending colon with no adjacent fat stranding. This may represent colitis. Terminal ileum is grossly unremarkable as visualized. This finding has progressed compared to the prior study. There are interval appendectomy changes. 2: The remainder of the abdominal and pelvic structures show no other concern for acute abnormality. 3: Gallbladder is surgically resected in the interim. Dictated by: Dictated on workstation # [id number]
[2021-05-13] MEDS ORDERED: METR500T PO (13:30)
[2021-05-13] MEDS ORDERED: CIPR500T5 PO (13:30)
[2021-05-13] MEDS ORDERED: PRD20T PO (13:30)
[2021-05-13] MEDS ORDERED: ACHD5005 PO (13:30)
[2021-05-13] MEDS ORDERED: metroNIDAZOLE 500 MG (FLAGYL) TAB PO ONE (13:45)
[2021-05-13] MEDS ORDERED: methylPREDNISolone 40 MG/ML (Solu-MEDROL) VIAL IV ONE (13:45)
[2021-05-13] MEDS ORDERED: CIPROFLOXACIN 500 MG (CIPRO) TABLET PO SCH (13:45)
[2021-05-13 13:50] VITALS: BP 128/88
== END 2021-05-13 13:48 | disposition home or self-care (01) ==
LOC: EDUNIT# 11:38 → ER 11:39
DX: K52.9 Noninfective gastroenteritis and colitis, unspecified (principal); G43.909 Migraine, unspecified, not intractable, without status migrainosus; Z79.899 Other long term (current) drug therapy; Z88.2 Allergy status to sulfonamides
CPT/HCPCS: 36415; 74177; 80048; 81000; 84703; 85025; 86141

== ENCOUNTER 2021-06-26 10:38 | Outpatient (CLI) | payer BC ==
[~2021-06-26 10:38] MED LIST changes: +PRD20T PO
[2021-06-26] MEDS ORDERED: diphenhydrAMINE 50 MG/ML INJ (BENADRYL) IV PRN (10:45)
[2021-06-26] MEDS ORDERED: EPINEPHrine INJECTION 1 MG/ML AMP IM PRN (10:45)
[2021-06-26] MEDS ORDERED: CASIRIVIMAB/IMDEVIMAB 1,200 MG in NS (IVPB) 250 ML IV ONE (10:45)
[2021-06-26] MEDS ORDERED: ONDANSETRON 4 MG/2 ML (SDV) Z0FRAN IV PRN (10:45)
[2021-06-26] MEDS ORDERED: ACETAMINOPHEN 500 MG TAB (TYLENOL) PO PRN (10:45)
[2021-06-26 10:47] VITALS: BP 133/83
[2021-06-26 11:39] VITALS: BP 112/65
== END 2021-06-26 12:25 | disposition home or self-care (01) ==
LOC: INFUSION 10:38
PROVIDERS: ATTEND Family Medicine
DX: Z23 Encounter for immunization (principal); U07.1 COVID-19

== ENCOUNTER → 2021-06-29 | Outpatient (CLI) | payer BC ==
--- NOTE | 2021-06-29 11:16 | Diagnostic Imaging Report ---
INDICATION: Cough. Positive for Covid. EXAMINATION: PA and lateral views of the chest. FINDINGS: The heart size and vascularity are normal. The lungs are clear. There is no effusion. There is no acute bony abnormality. IMPRESSION: No acute abnormality is seen. The chest is similar to a study from 01/14/2020. The report was faxed to Infection Control by rober@11:16 AM. Dictated by: Dictated on workstation # [id number]
== END ==
LOC: RAD 10:53
PROVIDERS: ATTEND Family Medicine
DX: U07.1 COVID-19 (principal); R05 Cough; R06.00 Dyspnea, unspecified; Z86.16 Personal history of COVID-19
CPT/HCPCS: 71046

== ENCOUNTER → 2021-08-12 | Outpatient (CLI) | payer BC ==
[~2021-08-12] MED LIST changes: +RT-ALBUTEROL SULF 2.5 MG/3 ML PRE-MIX VIAL INH ONE
--- NOTE | 2021-08-12 11:27 | Diagnostic Imaging Report ---
PROCEDURE: CT chest without contrast. TECHNIQUE: Multiple contiguous axial images were obtained through the chest without the use of intravenous contrast. Auto Exposure Controls were utilized during the CT exam to meet ALARA standards for radiation dose reduction. INDICATION: Increased cough, shortness of breath and dyspnea on exertion since Covid infection. Comparison is made with a CT from 01/17/2020. FINDINGS: There is generalized hyperaeration with more flattening of diaphragms compared to 01/17/2020 study. This could be secondary to reactive airway disease. No mass or infiltrate is seen. There is no bronchiectasis or peribronchial thickening. There is no effusion or pneumothorax. There is no mediastinal, hilar or axillary lymphadenopathy. There is no acute bony abnormality. IMPRESSION: There is generalized hyperaeration of the lungs with no other abnormality seen. Dictated by: Dictated on workstation # [id number]
== END ==
LOC: RAD 10:48
PROVIDERS: ATTEND Family Medicine
DX: R91.8 Other nonspecific abnormal finding of lung field (principal); R05.9 Cough, unspecified; R06.02 Shortness of breath; R53.83 Other fatigue; U09.9 Post COVID-19 condition, unspecified
CPT/HCPCS: 71250; 94060; 94726; 94729

== ENCOUNTER 2021-08-31 05:32 | Outpatient (RCR) | payer BC ==
[~2021-08-31] VITALS: Ht 172.7 cm; Wt 61.4 kg
[~2021-08-31 05:32] MED LIST changes: -RT-ALBUTEROL SULF 2.5 MG/3 ML PRE-MIX VIAL INH ONE
[2021-08-31] MEDS ORDERED: LEVO5TAB28 PO (13:55)
[2021-08-31] MEDS ORDERED: MONT10TA21 PO (13:55)
== END 2021-08-31 14:16 | disposition home or self-care (01) ==
LOC: PREOP 05:32 → EDSTATUS 10:00 → PREOP 14:16
PROVIDERS: ATTEND Podiatrist Foot & Ankle Surgery
DX: Z01.818 Encounter for other preprocedural examination (principal)

== ENCOUNTER 2021-09-07 10:50 | Day surgery (SDC) | payer BC ==
[2021-09-07] VITALS (8 sets, daily range): BP systolic 98–122; BP diastolic 60–84
[~2021-09-07] VITALS: Ht 172.7 cm; Wt 61.4 kg
[~2021-09-07 10:50] MED LIST changes: +LEVO5TAB28 PO; +MONT10TA21 PO
[2021-09-07] MEDS ORDERED: CLINDAMYCIN 600 MG/50 ML IVPB 50 ML IV ONE (11:00)
[2021-09-07] MEDS ORDERED: LIDOCAINE 1% INJ 20 ML 20 ML VIAL ONE (11:12)
[2021-09-07] MEDS ORDERED: BUPIVACAINE 0.5% 30 ML (SENSORCAINE) VIAL ONE (11:12)
[2021-09-07] MEDS: LACTATED RINGERS 1,000 ML IV PRN ×2 (11:23→14:00)
[2021-09-07] MEDS ORDERED: PROPOFOL INJECTION 50 ML IV ONE (11:31)
[2021-09-07] MEDS ORDERED: fentaNYL INJ 100 MCG/2 ML AMP ONE (11:31)
[2021-09-07] MEDS ORDERED: MIDAZOLAM 2 MG/2 ML (VERSED) VIAL ONE (11:31)
--- NOTE | 2021-09-07 14:03 | Progress Note-Pre Operative ---
Pre-Operative Progress Note H&P Reviewed The H&P was reviewed, patient examined and no changes noted. Date Seen by Provider: Sep 07, 2021 Time Seen by Provider: 14:03 Date H&P Reviewed: Sep 07, 2021 Time H&P Reviewed: 14:03 Pre-Operative Diagnosis: DJD left hallux DORIS ELAM DPM Sep 07, 2021 14:03
[2021-09-07] MEDS ORDERED: ONDANSETRON 4 MG/2 ML (SDV) Z0FRAN ONE (14:21)
[2021-09-07] MEDS ORDERED: proPOfol 200 MG/20 ML (DIPRIVAN) VIAL IV ONE (14:21)
--- NOTE | 2021-09-07 14:43 | Progress Note-Post Operative ---
Post-Operative Progess Note Surgeon (s)/Waxer Operator (s) Surgeon DORIS ELAM DPM Waxer Operator: none Pre-Operative Diagnosis DJD left hallux interphalangeal joint Post-Operative Diagnosis Same with accessory ossicle Procedure & Operative Findings Date of Procedure 09/07/21 Procedure Performed/Findings Arthroplasty left hallux IPH. Removal of accessory ossicle Anesthesia Type MAC Estimated Blood Loss Estimated blood loss (mL): Minimal Specimens/Packing Specimens Removed Accessory O[place], left hallux DORIS ELAM DPM Sep 07, 2021 14:43
[2021-09-07] MEDS ORDERED: HYDROcodone/APAP 5 MG/325 MG (LORTAB) TAB PO PRN (14:45)
[2021-09-07] MEDS ORDERED: LACTATED RINGERS 1,000 ML IV SCH (14:45)
[2021-09-07] MEDS ORDERED: ACHD5005 PO (14:46)
--- NOTE | 2021-09-07 15:05 | Anesthesia-General Post-Op ---
MAC Patient Condition Mental Status/LOC: Same as Preop Cardiovascular: Satisfactory Nausea/Vomiting: Absent Respiratory: Satisfactory Pain: Controlled Complications: Absent Post Op Complications Complications None Follow Up Care/Instructions Patient Instructions None needed. Anesthesiology Discharge Order Discharge Order Patient is doing well, no complaints, stable vital signs, no apparent adverse anesthesia problems. No complications reported per nursing. RUIZ KEMP CRNA Sep 07, 2021 15:05
--- NOTE | 2021-09-07 15:27 | Diagnostic Imaging Report ---
INDICATION: Postop left foot surgery. Followup. FINDINGS: Two views of the left foot show no fracture, dislocation, or other abnormality. There is no foreign body. IMPRESSION: Normal left foot. Dictated by: Dictated on workstation # [id number]
[2021-09-07] MEDS ORDERED: HYDROcodone/APAP 5 MG/325 MG (LORTAB) TAB ONE (15:33)
--- NOTE | 2021-09-16 08:39 | OPERATIVE REPORT ---
DATE OF SERVICE: 09/07/2021 SURGEON: Chelle Elam DPM. 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 PROCEDURE: Arthroplasty left hallux for the interphalangeal joint with removal of accessory ossicle. WOUND CLASS: Clean. ANESTHESIA: Monitored anesthesia care. HEMOSTASIS: Pneumatic ankle tourniquet at 250 mmHg. INDICATIONS: This 30-year-old female presents complaining of a painful left great toe. Conservative therapy is met with unsatisfactory results and the patient is agreeable to surgical intervention after risks and complications were discussed at length. No guarantees were extended to the patient and she is willing to proceed. DESCRIPTION OF PROCEDURE: The patient was brought back to the operating table, placed in secure supine position. Local anesthetic was then applied with aseptic technique utilizing 1:1 mixture of 1% Xylocaine, 0.5% Marcaine injected in a Abraham block for a total of 15 mL. The left foot was then prepped and draped in normal sterile manner. This is after an appropriate timeout was performed. The left foot was then elevated, allowed to exsanguinate, after which the tourniquet was inflated to 250 mmHg. Attention was then directed to the dorsal aspect of the interphalangeal joint where a 2 cm medial to lateral incision was created over the interphalangeal joint down to the extensor tendon where a tendon release was performed. This exposed the capsular tissue. No abnormalities were identified at this level. The incision was deepened through the dorsal capsule into the interphalangeal joint and no significant abnormalities were visualized at this point. An accessory incision was made to the medial aspect of the interphalangeal joint of the left hallux linear incision of approximately 1.5 cm. The incision was deepened down through the subcutaneous tissue down to the capsular tissue where a capsulotomy was performed. The accessory ossicle was identified and removed within the joint space of the interphalangeal joint. Some minor full thickness degeneration of the articular cartilage was identified. This area was curetted, cleansed, after which closure was then performed in layers. Deep closure was performed with 3-0 Vicryl for the extensor tendon dorsal incision as well as the capsulotomy. Subcutaneous tissue was reapproximated with 4-0 Vicryl and skin closure was performed with 4-0 Prolene in a horizontal mattress type stitch. Postoperative dressing consisted of Betadine soaked Adaptic, sterile 4 x 4, sterile Kerlix all secured with a Coban wrap. The patient tolerated the anesthesia and procedure well and was transported from the operating room to the recovery area with vital signs stable and vascular status intact to all digits of the left foot. She is to follow up in my office in 10 days' period of time or sooner if necessary. Job ID: [id number] DocumentID: [id number] Dictated Date: 09/15/2021 21:52:40 In Home Caregiver Date: 09/16/2021 08:38:52 Dictated By: CHELLE ELAM DPM
== END 2021-09-07 16:08 | disposition home or self-care (01) ==
LOC: SDC 10:50
PROVIDERS: ATTEND Podiatrist Foot & Ankle Surgery
DX: M20.22 Hallux rigidus, left foot (principal); M19.072 Primary osteoarthritis, left ankle and foot; G93.3 Postviral and related fatigue syndromes; U09.9 Post COVID-19 condition, unspecified; R05.2 Subacute cough; R06.02 Shortness of breath; R00.0 Tachycardia, unspecified; Z79.899 Other long term (current) drug therapy; Z98.890 Other specified postprocedural states
CPT/HCPCS: 73620; 84703; 87081

== ENCOUNTER → 2022-02-02 | Outpatient (CLI) | payer BC ==
--- NOTE | 2022-02-02 10:56 | Diagnostic Imaging Report ---
INDICATION: COUGH COMPARISON: 06/29/2021 FINDINGS: Frontal and lateral views of the chest demonstrate normal heart size and pulmonary vascularity. The lungs are clear. There are no signs of infiltrate, pleural effusions or pneumothoraces. The visualized osseous structures show no acute abnormalities. IMPRESSION: 1. No acute process. No signs of infiltrates, effusions or pneumothoraces. Dictated by: Dictated on workstation # [id number]
== END ==
LOC: RAD 10:18
PROVIDERS: ATTEND Family Medicine
DX: R05.9 Cough, unspecified (principal); R06.00 Dyspnea, unspecified
CPT/HCPCS: 71046

== ENCOUNTER → 2022-03-08 | Outpatient (CLI) | payer BC ==
[~2022-03-08] MED LIST changes: +methylPREDNISolone 40 MG/ML (DEPO MEDROL) VIAL IM NR
[2022-03-08 09:09] VITALS: BP 114/82
== END ==
LOC: SDC 08:54
PROVIDERS: ATTEND Emergency Medicine
DX: L25.9 Unspecified contact dermatitis, unspecified cause (principal)
CPT/HCPCS: 96372

== ENCOUNTER → 2022-04-02 | Outpatient (CLI) | payer BC ==
[~2022-04-02] MED LIST changes: -methylPREDNISolone 40 MG/ML (DEPO MEDROL) VIAL IM NR
--- NOTE | 2022-04-02 11:48 | Diagnostic Imaging Report ---
PROCEDURE: Pelvic comp/transvaginal sonogram. TECHNIQUE: Complete transabdominal and transvaginal pelvic ultrasound was performed. In addition, limited pelvic Doppler was performed. INDICATION: Endometriosis of the pelvis. Uterus is anteverted measuring 5.8 x 2.8 x 4.6 cm. Endometrium is 2 mm in thickness. No myometrial mass is identified. There appears to be some fluid within the endocervical canal with some internal echoes, which may represent blood products. Right ovary measures 2.0 x 0.9 x 0.9 cm and the left ovary measures 1.6 x 0.9 x 0.9 cm. Both ovaries show blood flow. No adnexal mass or free fluid is seen. IMPRESSION: There appears to be some complex fluid or debris in the endocervical canal. The study is otherwise unremarkable. Dictated by: Dictated on workstation # [id number]
== END ==
LOC: RAD 10:30
PROVIDERS: ATTEND Obstetrics & Gynecology
DX: N80.3 Endometriosis of pelvic peritoneum (principal)
CPT/HCPCS: 76830; 76856

== ENCOUNTER 2022-05-27 05:38 | Outpatient (CLI) | payer BC ==
[~2022-05-27] VITALS: Ht 172.7 cm; Wt 61.9 kg
== END 2022-05-27 12:35 | disposition home or self-care (01) ==
LOC: PREOP 05:38
PROVIDERS: ATTEND Obstetrics & Gynecology
DX: Z01.818 Encounter for other preprocedural examination (principal)

== ENCOUNTER 2022-06-03 07:56 | Day surgery (SDC) | payer BC ==
[~2022-06-03] VITALS: Ht 172 cm; Wt 61.9 kg
[2022-06-03] VITALS (9 sets, daily range): BP systolic 93–124; BP diastolic 60–88
[2022-06-03] MEDS ORDERED: CLINDAMYCIN 600 MG/50 ML IVPB 50 ML IV ONE (08:15)
[2022-06-03] MEDS ORDERED: NS IV ONE (08:45)
[2022-06-03] MEDS ORDERED: FAMOTIDINE 20MG/2ML IV (PEPCID) IV ONE (08:45)
[2022-06-03] MEDS ORDERED: ONDANSETRON 4 MG/2 ML (SDV) Z0FRAN IV ONE (08:45)
[2022-06-03] MEDS ORDERED: GENTAMICIN IV ONE (08:45)
[2022-06-03] MEDS ORDERED: SCOPOLAMINE 1.5 MG (TRANSDERM-SCOP) PATCH TOP ONE (08:45)
[2022-06-03] MEDS ORDERED: ONDANSETRON 4 MG/2 ML (SDV) Z0FRAN ONE ×3 (08:48→12:39)
[2022-06-03] MEDS ORDERED: SCOPOLAMINE 1.5 MG (TRANSDERM-SCOP) PATCH ONE (08:48)
[2022-06-03] MEDS ORDERED: FAMOTIDINE 20MG/2ML IV (PEPCID) ONE (08:49)
[2022-06-03] MEDS: LACTATED RINGERS 1,000 ML IV PRN ×2 (09:02→11:30)
--- NOTE | 2022-06-03 09:03 | Progress Note-Pre Operative ---
Pre-Operative Progress Note Date of Available H&P: May 20, 2022 Date H&P Reviewed: Jun 03, 2022 Time H&P Reviewed: 08:45 History & Physical: H&P Reviewed, Patient Examed, No changes noted Pre-Operative Diagnosis: dysmenorrhea, right lower quadrant pain DOMINGA CASTILLO MD Jun 03, 2022 09:02
[2022-06-03] MEDS ORDERED: OXC5T PO (09:09)
[2022-06-03] MEDS ORDERED: IBUP-844 PO (09:09)
[2022-06-03] MEDS ORDERED: NALOXONE 0.4 MG/ML 1 ML (NARCAN) VIAL IV PRN (09:15)
[2022-06-03] MEDS ORDERED: ONDANSETRON 4 MG/2 ML (SDV) Z0FRAN IVP PRN ×2 (09:15→13:00)
[2022-06-03] MEDS ORDERED: KETOROLAC 30 MG/ML VIAL IVP ONE (09:15)
[2022-06-03] MEDS ORDERED: fentaNYL INJ 100 MCG/2 ML AMP ONE (10:45)
[2022-06-03] MEDS ORDERED: proPOfol 200 MG/20 ML (DIPRIVAN) VIAL IV ONE (10:45)
[2022-06-03] MEDS ORDERED: MIDAZOLAM 2 MG/2 ML (VERSED) VIAL ONE (10:45)
[2022-06-03] MEDS ORDERED: ROCURONIUM 50 MG/5 ML (ZEMURON) VIAL IV ONE (11:36)
[2022-06-03] MEDS ORDERED: LIDOCAINE PF 2% 5 ML (XYLOCAINE) VIAL ONE (11:36)
[2022-06-03] MEDS ORDERED: SEVOFLURANE (ULTANE) 15 ML INHAL SOLN ONE ×2 (11:36→12:38)
[2022-06-03] MEDS ORDERED: ACETAMINOPHEN 500 MG TAB (TYLENOL) PO SCH (12:00)
[2022-06-03] MEDS ORDERED: GLYCOPYRROLATE 0.2 MG/ML (ROBINUL) 2 ML VIAL ONE (12:38)
[2022-06-03] MEDS ORDERED: NEOSTIGMINE (BLOXIVERZ ) 1 MG/1ML 10 ML VIAL ONE (12:38)
[2022-06-03] MEDS ORDERED: KETOROLAC 30 MG/ML VIAL ONE (12:45)
[2022-06-03] MEDS ORDERED: morphine INJ 10 MG/ML 1ML (SYR OR VIAL) ONE (12:54)
[2022-06-03] MEDS ORDERED: morphine INJ 10 MG/ML 1ML (SYR OR VIAL) IVP ONE (13:00)
[2022-06-03] MEDS ORDERED: PROMETHAZINE INJ 25 MG/ML (PHENERGAN) AMP IVP ONE (13:00)
[2022-06-03] MEDS ORDERED: HYDROmorphone 2 MG/ML VIAL (DILAUDID) IV ONE (13:00)
[2022-06-03] MEDS ORDERED: PROMETHAZINE INJ 25 MG/ML (PHENERGAN) AMP ONE (13:14)
--- NOTE | 2022-06-03 13:45 | Anesthesia-General Post-Op ---
General Patient Condition Mental Status/LOC: Same as Preop Cardiovascular: Satisfactory Nausea/Vomiting: Absent Respiratory: Satisfactory Pain: Controlled Complications: Absent Post Op Complications Complications None Follow Up Care/Instructions Patient Instructions None needed. Anesthesia/Patient Condition Patient Condition Patient is doing well, no complaints, stable vital signs, no apparent adverse anesthesia problems. No complications reported per nursing. TOMMY OATES CRNA Jun 03, 2022 13:45
[2022-06-03] MEDS: D5 LR IV SOLUTION 1,000 ML IV SCH ×2 (15:08→15:09)
[2022-06-03] MEDS ORDERED: IBUPROFEN 600 MG (MOTRIN) TAB PO SCH (19:00)
--- NOTE | 2022-06-04 02:46 | OPERATIVE REPORT ---
DATE OF SERVICE: 06/03/2022 PREOPERATIVE DIAGNOSES: Dysmenorrhea, dyspareunia and right lower quadrant pain. POSTOPERATIVE DIAGNOSES: Dysmenorrhea, dyspareunia and right lower quadrant pain. PROCEDURE: Robotic-assisted hysterectomy. SURGEON: Jodi Gardner M.D. ANESTHESIA: General. ESTIMATED BLOOD LOSS: Minimal. COMPLICATIONS: None. CONDITION: Stable. FINDINGS: Normal appearing uterus, tubes and ovaries. Smooth liver edge, status post history of appendectomy. Several small martin were appreciated in the peritoneal fold in the anterior cul-de-sac. DESCRIPTION OF PROCEDURE: After the risks, benefits and alternatives of the procedure were described to the patient, she was taken to the operating room where general anesthesia was obtained without difficulty. She was placed in the dorsal lithotomy position and prepped and draped in the usual sterile fashion. Lopez catheter and SCDs were in place. Weighted speculum was placed in the patient's vagina and the anterior lip of the cervix was grasped with a double tooth tenaculum. The uterus was sounded and the SINTIA uterine manipulator was assembled in the usual sterile fashion and all other instruments were removed from the patient's vagina. Attention was turned to the abdominal portion of the procedure where an 8 mm skin incision was made in the umbilical fold and a corresponding trocar and sleeve were advanced without difficulty following insufflation with the Veress needle. Abdomen and pelvis were surveyed with the above findings and she was placed in Trendelenburg. An 8 mm skin incision was made in the right and left lower quadrant corresponding trocars and sleeves were advanced without difficulty under direct visualization. The robot was docked in the usual sterile fashion with the vessel sealer in the first port, the camera in the second and monopolar hook cautery in the 3rd. From the robotic console, the ureters were visualized to coursing over the pelvic brim outside the anticipated surgical field. The fallopian tubes were amputated and hemostasis was appreciated. The ovarian suspensory ligaments were isolated, cauterized and cut. Hemostasis was appreciated. The round ligaments likewise were isolated, cauterized and cut. Hemostasis was appreciated. The broad ligament were dissected down towards the cervix, dissecting the anterior and posteriorly to expose and skeletonize the uterine vessels bilaterally, which were cauterized and cut. Hemostasis was assured. The vesicouterine peritoneum was dissected off the lower uterine segment and cervix. Anterior colpotomy was made and the cervix was amputated circumferentially with monopolar. The specimen was delivered through the vagina and a lap sponge was placed in the patient's vagina to maintain pneumoperitoneum. The instruments were exchanged for fenestrated bipolar ____ ____ ____ suture cut. The vaginal cuff was closed with a barbed locked stich running lateral to the midline and crossing in the midline. Hemostasis was appreciated and all instruments were removed from the patient's abdomen. The skin incisions were closed with subcuticular 4-0 Monocryl stitch. ____ ____ ____ Hemostasis was assured and the Lopez catheter was removed. The patient tolerated the procedure well. Sponge, lap, needle and instrument counts were correct ____ ____ ____ to procedure. Job ID: [id number] DocumentID: [id number] Dictated Date: 06/03/2022 18:11:43 Battery Tester And Repairer Date: 06/04/2022 01:37:12 Dictated By: Jodi Gardner MD
== END 2022-06-03 17:00 | disposition home or self-care (01) ==
LOC: SDC 07:56 → WS 13:40 → SDC 17:00
PROVIDERS: ATTEND Obstetrics & Gynecology
DX: N87.1 Moderate cervical dysplasia (principal); D25.0 Submucous leiomyoma of uterus; D25.2 Subserosal leiomyoma of uterus; N83.8 Other noninflammatory disorders of ovary, fallopian tube and broad ligament; Z79.899 Other long term (current) drug therapy
CPT/HCPCS: 84703; 86850; 86900; 86901; 87081; 94664

== ENCOUNTER 2022-07-29 13:00 | Outpatient (RCR) | payer BC ==
[2022-07-28 11:54] LABS: ABSOLUTE RETIC # 48 10e9/uL (24-90); BASOPHILS # (AUTO) 0.1 10^3/uL (0.0-0.1); BASOPHILS % (AUTO) 1 % (0-10); EOSINOPHILS # (AUTO) 0.1 10^3/uL (0.0-0.3); EOSINOPHILS % (AUTO) 2 % (0-10); HEMATOCRIT 46 % (35-52); HEMOGLOBIN 15.4 g/dL (11.5-16.0); LYMPHOCYTES # (AUTO) 1.9 10^3/uL (1.0-4.0); LYMPHOCYTES % (AUTO) 31 % (12-44); MEAN CORPUSCULAR HEMOGLOBIN 29 pg (25-34); MEAN CORPUSCULAR HGB CONC 34 g/dL (32-36); MEAN CORPUSCULAR VOLUME 86 fL (80-99); MONOCYTES # (AUTO) 0.3 10^3/uL (0.0-1.0); MONOCYTES % (AUTO) 4 % (0-12); NEUTROPHILS # (AUTO) 3.7 10^3/uL (1.8-7.8); NEUTROPHILS % (AUTO) 61 % (42-75); PLATELET COUNT 227 10^3/uL (130-400); WHITE BLOOD COUNT 6.1 10^3/uL (4.3-11.0)
[2022-07-28 12:14] LABS: ALANINE AMINOTRANSFERASE 54 U/L (0-55); ALBUMIN 4.7 GM/DL (3.2-4.5); ALKALINE PHOSPHATASE 44 U/L (40-136); BILIRUBIN,TOTAL 0.4 MG/DL (0.1-1.0); BUN/CREATININE RATIO 21; CALCIUM 9.6 MG/DL (8.5-10.1); CARBON DIOXIDE 25 MMOL/L (21-32); CHLORIDE 105 MMOL/L (98-107); CREATININE SERUM 0.76 MG/DL (0.60-1.30); EOSINOPHILS % (MANUAL) 4 %; GFR ESTIMATED 107; GLUCOSE 86 MG/DL (70-105); LYMPHOCYTES % (MANUAL) 27 %; MONOCYTES % (MANUAL) 3 %; NEUTROPHILS % (MANUAL) 66 %; POTASSIUM 4.1 MMOL/L (3.6-5.0); RBC MORPH NORMAL; SODIUM 140 MMOL/L (135-145); TOTAL PROTEIN 7.3 GM/DL (6.4-8.2); URIC ACID 4.8 MG/DL (2.6-7.2)
[2022-07-28 12:35] LABS: FREE T4 (FREE THYROXINE) 0.93 NG/DL (0.70-1.48)
[~2022-07-29 13:00] MED LIST changes: +IBUP-844 PO; +OXC5T PO
[2022-08-02 12:21] LABS: CREATININE CAT FR MG/DL 93 mg/dL
[2022-08-06 17:50] LABS: EPINEPHRINE RATIO 10 ug/g CRT (0-20); URINE VOLUME CAT 1325 mL mL
== END 2022-08-16 | disposition home or self-care (01) ==
LOC: LAB 13:00
PROVIDERS: ATTEND Nurse Practitioner Family
DX: R00.2 Palpitations (principal); R55 Syncope and collapse
CPT/HCPCS: 36415; 80053; 82088; 82384; 82530; 82533; 82607; 82672; 82728; 82746; 83001; 83002; 83497; 83540; 83550; 83835; 84144; 84244; 84300; 84439; 84443; 84480; 84550; 84585; 84588; 85007; 85027; 85045

== ENCOUNTER → 2022-07-30 | Outpatient (CLI) | payer BC ==
[~2022-07-30] MED LIST changes: +BARIUM for suspension 96% w/w (Vanilla Silq Medium Density) PO ONE; +BARIUM for suspension 98% w/w (Vanilla Silq High Density) PO ONE
--- NOTE | 2022-07-30 11:42 | Diagnostic Imaging Report ---
INDICATION: Nausea and chest discomfort. Patient ingested effervescent crystals as well as thin and thick barium and imaging of the esophagus was performed in multiple obliquities. Preliminary radiograph over the chest demonstrates the lungs to be clear. A loop recorder overlies the left chest. The esophagus has a smooth contour. No mass or stricture is identified. No hiatal hernia or gastroesophageal reflux was demonstrated. IMPRESSION: Unremarkable barium swallow study. Dictated by: Dictated on workstation # [id number]
== END ==
LOC: RAD 09:01
PROVIDERS: ATTEND Nurse Practitioner Family
DX: R11.0 Nausea (principal); R07.9 Chest pain, unspecified
CPT/HCPCS: 74220

== ENCOUNTER → 2022-08-12 | Outpatient (CLI) | payer BC ==
[~2022-08-12] MED LIST changes: -BARIUM for suspension 96% w/w (Vanilla Silq Medium Density) PO ONE; -BARIUM for suspension 98% w/w (Vanilla Silq High Density) PO ONE; +CATHETER FLUSH 10 ML SYR IV PRN; +HOLD METFORMIN - RECEIVED CONTRAST 20 ML VIAL IV SCH; +IOHEXOL 350 MG/ML 100 ML (OMNIPAQUE 350) VIAL IV ONE; +NS 100 ML (IVPB) BAG IV ONE
--- NOTE | 2022-08-12 09:53 | Diagnostic Imaging Report ---
PROCEDURE: CT head with and without contrast. TECHNIQUE: Multiple contiguous axial images were obtained through the brain before and after the administration of intravenous contrast. Auto Exposure Controls were utilized during the CT exam to meet ALARA standards for radiation dose reduction. INDICATION: Syncope. COMPARISON: No prior studies are available for comparison. FINDINGS: The ventricles and sulci are within normal limits. No sulcal effacement or midline shift is identified. No acute intra-axial or extra-axial hemorrhage is detected. Cisterns are patent. No abnormal enhancement following contrast administration is identified. The visualized paranasal sinuses are clear. IMPRESSION: Unremarkable pre and post contrast CT of the brain. Dictated by: Dictated on workstation # [id number]
== END ==
LOC: RAD 07:46
PROVIDERS: ATTEND Nurse Practitioner Family
DX: R55 Syncope and collapse (principal)
CPT/HCPCS: 70470

== ENCOUNTER → 2022-09-02 | Outpatient (CLI) | payer BC ==
[~2022-09-02] MED LIST changes: -CATHETER FLUSH 10 ML SYR IV PRN; -HOLD METFORMIN - RECEIVED CONTRAST 20 ML VIAL IV SCH; -IOHEXOL 350 MG/ML 100 ML (OMNIPAQUE 350) VIAL IV ONE; -NS 100 ML (IVPB) BAG IV ONE
== END ==
LOC: LAB 08:11
PROVIDERS: ATTEND Nurse Practitioner Family
DX: R00.2 Palpitations (principal); R55 Syncope and collapse
CPT/HCPCS: 36415; 82308

== ENCOUNTER → 2022-10-14 | Outpatient (CLI) | payer BC ==
--- NOTE | 2022-10-14 19:11 | Diagnostic Imaging Report ---
INDICATION: Chest pain. Compared 02/02/2022. FINDINGS: The lungs clear. No failure, effusion or pneumothorax. IMPRESSION: No acute appearing abnormality. Dictated by: Dictated on workstation # [id number]
== END ==
LOC: CARD 14:08
PROVIDERS: ATTEND Family Medicine
DX: I31.9 Disease of pericardium, unspecified (principal)
CPT/HCPCS: 71046

== ENCOUNTER → 2022-10-21 | Outpatient (CLI) | payer BC | LOC: CARD 14:00 | PROVIDERS: ATTEND Nurse Practitioner Family | DX: I31.9 Disease of pericardium, unspecified (principal) | CPT/HCPCS: 93306 ==

== ENCOUNTER → 2022-10-27 | Outpatient (CLI) | payer BC ==
[~2022-10-27] MED LIST changes: +HOLD METFORMIN - RECEIVED CONTRAST 20 ML VIAL IV SCH; +IOHEXOL 350 MG/ML 100 ML (OMNIPAQUE 350) VIAL IV ONE; +NS 100 ML (IVPB) BAG IV ONE
--- NOTE | 2022-10-27 10:20 | Diagnostic Imaging Report ---
PROCEDURE: CT chest with contrast only. TECHNIQUE: Multiple contiguous axial images were obtained through the chest after administration of intravenous contrast. Auto Exposure Controls were utilized during the CT exam to meet ALARA standards for radiation dose reduction. INDICATION: History of chest pain. History of ablation in September of 2022. Mid chest pain with pain to both shoulder blades. Pain under left clavicle. Shortness of air and cough. EXAMINATION: CT chest with contrast 10/27/2022. COMPARISON: 08/12/2021 FINDINGS: Lungs hyperinflated similar to previous imaging with no suspicious masses appreciated. There are no pericardial or pleural effusions. There is no mediastinal hilar or axillary adenopathy. The visualized upper abdomen demonstrates a small cystic lesion in the right lobe of the liver which is too small for characterization. A peripheral vascularity is noted suggesting possible hemangioma. Dedicated liver protocol CT recommended on a nonemergent basis. No acute abnormality seen in the visualized upper abdomen: Nonobstructive stones noted in the left kidney. Periportal edema is suggested and of uncertain etiology. There is no acute osseous abnormality. IMPRESSION: 1. Hyperinflation of the lungs with no acute abnormality in the chest. 2. Findings within the liver require followup. See above discussion and recommendations. Dictated by: Dictated on workstation # [id number]
== END ==
LOC: RAD 08:05
PROVIDERS: ATTEND Nurse Practitioner Family
DX: R91.8 Other nonspecific abnormal finding of lung field (principal)
CPT/HCPCS: 71260

== ENCOUNTER → 2022-10-29 | Outpatient (CLI) | payer BC ==
[~2022-10-29] MED LIST changes: -HOLD METFORMIN - RECEIVED CONTRAST 20 ML VIAL IV SCH; -IOHEXOL 350 MG/ML 100 ML (OMNIPAQUE 350) VIAL IV ONE; -NS 100 ML (IVPB) BAG IV ONE
[2022-10-29 14:27] LABS: CALCIUM 9.5 MG/DL (8.5-10.1); CREATININE SERUM 0.82 MG/DL (0.60-1.30); MAGNESIUM 2.1 MG/DL (1.6-2.4); POTASSIUM 3.9 MMOL/L (3.6-5.0)
== END ==
LOC: LAB 13:58
PROVIDERS: ATTEND Nurse Practitioner Family
DX: R05.3 Chronic cough (principal)
CPT/HCPCS: 36415; 80048; 83735

== ENCOUNTER → 2022-11-17 | Outpatient (CLI) | payer BC ==
[~2022-11-17] MED LIST changes: +HOLD METFORMIN - RECEIVED CONTRAST 20 ML VIAL IV SCH; +IOHEXOL 350 MG/ML 100 ML (OMNIPAQUE 350) VIAL IV ONE; +NS 100 ML (IVPB) BAG IV ONE
--- NOTE | 2022-11-17 08:24 | Diagnostic Imaging Report ---
EXAMINATION: CT abdomen with and without intravenous contrast. TECHNIQUE: Precontrast acquisitions were acquired through the abdomen. Multiple contiguous axial images were obtained through the abdomen after the administration of intravenous contrast. All CT scans use one or more of the following dose optimizing techniques: automated exposure control, MA and/or KvP adjustment based on patient size and exam type or iterative reconstruction. HISTORY: Liver lesion COMPARISON: 05/13/2021 FINDINGS: Limited views of the lower thorax are unremarkable. The segment seven liver lesion measuring 1.0 cm shows peripheral discontinuous nodular enhancement with fill-in on delayed images and is consistent with a hemangioma. No follow-up needed. There is no biliary ductal dilation. Gallbladder is absent. Pancreas is normal. Spleen is normal. Adrenal glands are normal. The kidneys are normal. There is no hydronephrosis. Visualized bowel is normal in caliber without obstruction or inflammation. No free fluid or air. No abdominal lymphadenopathy. Aorta is normal in caliber without aneurysm. There are no suspicious osseus lesions. IMPRESSION: 1. The liver lesion is a hemangioma. No follow-up needed. Dictated by: Dictated on workstation # [id number]
== END ==
LOC: RAD 07:26
PROVIDERS: ATTEND Family Medicine
DX: D18.09 Hemangioma of other sites (principal)
CPT/HCPCS: 74170

== ENCOUNTER → 2022-11-18 | Outpatient (CLI) | payer BC ==
[~2022-11-18] MED LIST changes: -HOLD METFORMIN - RECEIVED CONTRAST 20 ML VIAL IV SCH; -IOHEXOL 350 MG/ML 100 ML (OMNIPAQUE 350) VIAL IV ONE; -NS 100 ML (IVPB) BAG IV ONE
[2022-11-18 13:38] LABS: ALANINE AMINOTRANSFERASE 28 U/L (0-55); ALBUMIN 5.1 GM/DL (3.2-4.5); ALKALINE PHOSPHATASE 65 U/L (40-136); BILIRUBIN,TOTAL 0.5 MG/DL (0.1-1.0); BUN/CREATININE RATIO 15; CALCIUM 9.6 MG/DL (8.5-10.1); CARBON DIOXIDE 21 MMOL/L (21-32); CHLORIDE 107 MMOL/L (98-107); CREATININE SERUM 0.78 MG/DL (0.60-1.30); GFR ESTIMATED 103; GLUCOSE 104 MG/DL (70-105); POTASSIUM 3.2 MMOL/L (3.6-5.0); SODIUM 142 MMOL/L (135-145); TOTAL PROTEIN 7.9 GM/DL (6.4-8.2)
[2022-11-18 14:40] LABS: BASOPHILS % (AUTO) 0 % (0-10); EOSINOPHILS # (AUTO) 0.2 10^3/uL (0.0-0.3); EOSINOPHILS % (AUTO) 2 % (0-10); HEMATOCRIT 43 % (35-52); HEMOGLOBIN 14.5 g/dL (11.5-16.0); LYMPHOCYTES # (AUTO) 2.3 10^3/uL (1.0-4.0); LYMPHOCYTES % (AUTO) 24 % (12-44); MEAN CORPUSCULAR HEMOGLOBIN 28 pg (25-34); MEAN CORPUSCULAR HGB CONC 34 g/dL (32-36); MEAN CORPUSCULAR VOLUME 85 fL (80-99); MEAN PLATELET VOLUME 10.8 fL (9.0-12.2); MONOCYTES # (AUTO) 0.4 10^3/uL (0.0-1.0); MONOCYTES % (AUTO) 4 % (0-12); NEUTROPHILS # (AUTO) 6.8 10^3/uL (1.8-7.8); NEUTROPHILS % (AUTO) 70 % (42-75); PLATELET COUNT 284 10^3/uL (130-400); WHITE BLOOD COUNT 9.7 10^3/uL (4.3-11.0)
== END ==
LOC: CARD 09:41
PROVIDERS: ATTEND Internal Medicine Cardiovascular Disease
DX: R07.9 Chest pain, unspecified (principal); R00.0 Tachycardia, unspecified
CPT/HCPCS: 36415; 80053; 84484; 85025; 85652; 93005

== ENCOUNTER → 2022-11-30 | Outpatient (CLI) | payer BC ==
[2022-11-30 14:29] LABS: ALBUMIN 4.4 GM/DL (3.2-4.5)
[2022-11-30 14:30] LABS: POTASSIUM 3.6 MMOL/L (3.6-5.0)
[2022-11-30 14:31] LABS: CALCIUM 8.9 MG/DL (8.5-10.1)
[2022-11-30 14:32] LABS: TOTAL PROTEIN 6.7 GM/DL (6.4-8.2)
[2022-11-30 14:34] LABS: BILIRUBIN,TOTAL 0.5 MG/DL (0.1-1.0)
[2022-11-30 14:36] LABS: CREATININE SERUM 0.77 MG/DL (0.60-1.30)
== END ==
LOC: LAB 14:01
PROVIDERS: ATTEND Internal Medicine Cardiovascular Disease
DX: I30.9 Acute pericarditis, unspecified (principal)
CPT/HCPCS: 36415; 80053

== ENCOUNTER → 2022-12-17 | Outpatient (CLI) | payer BC ==
[2022-12-17 09:56] LABS: ALBUMIN 4.3 GM/DL (3.2-4.5); BILIRUBIN,TOTAL 0.5 MG/DL (0.1-1.0); CALCIUM 9.2 MG/DL (8.5-10.1); CREATININE SERUM 0.76 MG/DL (0.60-1.30); POTASSIUM 3.6 MMOL/L (3.6-5.0); TOTAL PROTEIN 6.5 GM/DL (6.4-8.2)
== END ==
LOC: LAB 09:27
PROVIDERS: ATTEND Internal Medicine Cardiovascular Disease
DX: I30.9 Acute pericarditis, unspecified (principal)
CPT/HCPCS: 36415; 80053

== ENCOUNTER → 2022-12-31 | Outpatient (CLI) | payer BC ==
[2022-12-31 08:16] LABS: ALBUMIN 4.4 GM/DL (3.2-4.5); BILIRUBIN,TOTAL 0.5 MG/DL (0.1-1.0); CALCIUM 9.6 MG/DL (8.5-10.1); CREATININE SERUM 0.84 MG/DL (0.60-1.30); POTASSIUM 3.7 MMOL/L (3.6-5.0); TOTAL PROTEIN 6.6 GM/DL (6.4-8.2)
== END ==
LOC: LAB 07:44
DX: I30.9 Acute pericarditis, unspecified (principal)
CPT/HCPCS: 36415; 80053

== ENCOUNTER → 2023-01-06 | Outpatient (CLI) | payer BC ==
[~2023-01-06] VITALS: Ht 172 cm; Wt 54.5 kg
[~2023-01-06] MED LIST changes: +NS IV 1000 ML 1,000 ML IV SCH; +NS IV 1000 ML 1,000 ML ONE
[2023-01-06 11:11] VITALS: BP 113/77
== END ==
LOC: SDC 10:41
PROVIDERS: ATTEND Nurse Practitioner Family
DX: E86.0 Dehydration (principal)
CPT/HCPCS: 96360

== ENCOUNTER → 2023-01-10 | Outpatient (CLI) | payer BC ==
[~2023-01-10] MED LIST changes: -NS IV 1000 ML 1,000 ML IV SCH; -NS IV 1000 ML 1,000 ML ONE
[2023-01-10 09:24] LABS: ALBUMIN 4.4 GM/DL (3.2-4.5); POTASSIUM 3.7 MMOL/L (3.6-5.0)
[2023-01-10 09:25] LABS: CALCIUM 9.2 MG/DL (8.5-10.1)
[2023-01-10 09:26] LABS: TOTAL PROTEIN 6.4 GM/DL (6.4-8.2)
[2023-01-10 09:28] LABS: BILIRUBIN,TOTAL 0.5 MG/DL (0.1-1.0)
[2023-01-10 09:30] LABS: CREATININE SERUM 0.8 MG/DL (0.60-1.30)
== END ==
LOC: LAB 09:02
PROVIDERS: ATTEND Internal Medicine Cardiovascular Disease
DX: R00.0 Tachycardia, unspecified (principal)
CPT/HCPCS: 36415; 80053

== ENCOUNTER → 2023-01-12 | Outpatient (CLI) | payer BC | LOC: LAB 09:49 | PROVIDERS: ATTEND Internal Medicine Cardiovascular Disease | DX: R55 Syncope and collapse (principal) | CPT/HCPCS: 36415; 82550; 84260 ==

== ENCOUNTER → 2023-01-17 | Outpatient (CLI) | payer BC ==
[2023-01-17 11:48] LABS: ALBUMIN 4.3 GM/DL (3.2-4.5); POTASSIUM 3.7 MMOL/L (3.6-5.0)
[2023-01-17 11:49] LABS: CALCIUM 9.4 MG/DL (8.5-10.1)
[2023-01-17 11:50] LABS: TOTAL PROTEIN 6.3 GM/DL (6.4-8.2)
[2023-01-17 11:52] LABS: BILIRUBIN,TOTAL 0.4 MG/DL (0.1-1.0)
[2023-01-17 11:54] LABS: CREATININE SERUM 0.76 MG/DL (0.60-1.30)
== END ==
LOC: LAB 11:18
PROVIDERS: ATTEND Internal Medicine Cardiovascular Disease
DX: I30.9 Acute pericarditis, unspecified (principal)
CPT/HCPCS: 36415; 80053

== ENCOUNTER → 2023-02-04 | Outpatient (CLI) | payer BC ==
[~2023-02-04] MED LIST changes: +MONT-47 PO; -MONT10TA21 PO
[2023-02-04 11:49] LABS: BASOPHILS % (AUTO) 1 % (0-10); EOSINOPHILS # (AUTO) 0.1 10^3/uL (0.0-0.3); EOSINOPHILS % (AUTO) 1 % (0-10); HEMATOCRIT 41 % (35-52); HEMOGLOBIN 13.7 g/dL (11.5-16.0); LYMPHOCYTES # (AUTO) 2.1 10^3/uL (1.0-4.0); LYMPHOCYTES % (AUTO) 32 % (12-44); MEAN CORPUSCULAR HEMOGLOBIN 29 pg (25-34); MEAN CORPUSCULAR HGB CONC 34 g/dL (32-36); MEAN CORPUSCULAR VOLUME 85 fL (80-99); MEAN PLATELET VOLUME 10.1 fL (9.0-12.2); MONOCYTES # (AUTO) 0.4 10^3/uL (0.0-1.0); MONOCYTES % (AUTO) 5 % (0-12); NEUTROPHILS % (AUTO) 61 % (42-75); PLATELET COUNT 231 10^3/uL (130-400); WHITE BLOOD COUNT 6.6 10^3/uL (4.3-11.0)
[2023-02-04 11:51] LABS: ALBUMIN 4.4 GM/DL (3.2-4.5); POTASSIUM 4.2 MMOL/L (3.6-5.0)
[2023-02-04 11:52] LABS: CALCIUM 9.1 MG/DL (8.5-10.1)
[2023-02-04 11:53] LABS: TOTAL PROTEIN 6.6 GM/DL (6.4-8.2)
[2023-02-04 11:55] LABS: BILIRUBIN,TOTAL 0.4 MG/DL (0.1-1.0)
[2023-02-04 11:57] LABS: CREATININE SERUM 0.77 MG/DL (0.60-1.30)
== END ==
LOC: LAB 11:28
PROVIDERS: ATTEND Family Medicine
DX: R00.0 Tachycardia, unspecified (principal); R74.01 Elevation of levels of liver transaminase levels
CPT/HCPCS: 36415; 80053; 85025

== ENCOUNTER 2023-03-07 22:36 | Emergency (ER) | payer BC ==
[2023-03-07] MEDS ORDERED: LACTATED RINGERS 1,000 ML IV STA (22:39)
[2023-03-07] MEDS ORDERED: ONDANSETRON 4 MG/2 ML (SDV) Z0FRAN IVP ONE ×2 (22:45→23:00)
[2023-03-07] MEDS ORDERED: ONDANSETRON 4 MG/2 ML (SDV) Z0FRAN ONE (22:47)
[2023-03-07] MEDS ORDERED: PANTOPRAZOLE 40 MG (PROTONIX) VIAL ONE (22:47)
--- NOTE | 2023-03-07 22:55 | ED GI ---
General Stated Complaint: ABD PAIN/VOMITING Source of Information: Patient History of Present Illness Date Seen by Provider: March 07, 2023 Time Seen by Provider: 22:40 Initial Comments PT ARRIVES VIA POV FROM HOME PT BEGAN GETTING SICK AROUND 0300 THIS MORNING WITH NAUSEA AND VOMITING STATES SHE CAN'T KEEP ANYTHING DOWN. HAS HAD 6 CRACKERS AND WATER TODAY--VOMITED IT ALL BACK UP SHE HAS HAD DIARRHEA X 1 AROUND 2130 TONIGHT, SHE BEGAN HAVING GENERALIZED ABDOMINAL PAIN AND BURNING, WELL BURNING SENSATION INTO HER CHEST SHE ALSO BEGAN HAVING ALOT OF PVC'S TONIGHT WELL. HAS HAD FEVER UP TO 101.6 TODAY SHE IS STILL URINATING. 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 PT HAD PERICARDITIS IN OCTOBER OF THIS YEAR, AFTER HAVING A CARDIAC ABLATION FOR I.S.T. ( INAPPROPRIATE SINUS TACHYCARDIA) SHE WAS TREATED WITH METHOTREXATE SHE HAD THESE SAME GI SYMPTOMS WITH METHOTREXATE, BUT THAT WAS COMPLETED THE END OF DECEMBER. SHE HAS NOT HAD ANY GI PROBLEMS SINCE THEN. SHE DOES NOT NORMALLY HAVE GI PROBLEMS. SHE HAS HAD PRIOR CHOLECYSTECTOMY, APPENDECTOMY AND HYSTERECTOMY/BSO. SHE STATES HER NORMAL HEART RATE IS > 100, AND HER NORMAL BLOOD PRESSURE IS IN 80'S-90'S SYSTOLIC PCP: DR. CHAPMAN Allergies and Home Medications Allergies Coded Allergies: Sulfa (Sulfonamide Antibiotics) (Unverified Allergy, Severe, Anaphylaxis, 06/03/22) Cephalosporins (Unverified Allergy, Unknown, Hives, 05/27/22) Patient Home Medication List Home Medication List Reviewed: Yes Ibuprofen (Ibu) 600 Mg Tablet, 600 MG PO Q6H Prescribed by: Jodi Gardner on 06/03/22 0909 Levocetirizine Dihydrochloride (Xyzal) 5 Mg Tablet, 5 MG PO DAILY, (Reported) Entered as Reported by: BRENT SOLOMON on 08/31/21 1355 Metoclopramide HCl (Reglan) 10 Mg Tablet, 10 MG PO Q6H Prescribed by: IRAM DAVIS on 03/08/23 0017 Montelukast Sodium (Singulair) 10 Mg Tablet, 10 MG PO DAILY, (Reported) Entered as Reported by: BRENT SOLOMON on 08/31/21 1355 Naratriptan HCl (Naratriptan HCl) 2.5 Mg Tablet, 2.5 MG PO UD PRN for MIGRAINE, (Reported) Entered as Reported by: MEAGAN MARQUIS on 09/23/15 0920 Oxycodone Hcl (Oxyir Tablet) 5 Mg Tab, 5 MG PO Q4HR PRN for PAIN-SEE DOSE INSTRUCTIONS Prescribed by: Jodi Gardner on 06/03/22 0909 Pantoprazole Sodium (Protonix) 40 Mg Tablet.dr, 40 MG PO DAILY Prescribed by: IRAM DAVIS on 03/08/23 0017 Review of Systems Review of Systems Constitutional: see HPI, fever EENTM: No Symptoms Reported Respiratory: No Symptoms Reported Cardiovascular: See HPI Gastrointestinal: See HPI Genitourinary: No Symptoms Reported Musculoskeletal: no symptoms reported Skin: no symptoms reported Psychiatric/Neurological: No Symptoms Reported Endocrine: No Symptoms Reported Hematologic/Lymphatic: No Symptoms Reported Past Hxihwfb-Fmpgsb-Fbqjqg Hx Patient Social History Substance use?: No Alcohol Use?: No Immunizations Up To Date Tetanus Booster (TDap): More than 5yrs PED Vaccines UTD: No First/Initial COVID19 Vaccinat: SEPTEMBER 2020 Second COVID19 Vaccination Logan: OCTOBER 2020 Third COVID19 Vaccination Date: SEPTEMBER 2020 Seasonal Allergies Seasonal Allergies: Yes Past Medical History Surgery/Hospitalization HX: LOOP RECORDER 09/2020 Surgeries: Yes (septoplasty/sinus surg;L FOOT SX;R FOOT TARSAL TUNNEL RELEASE;CARDIAC ABLAT) Appendectomy, Cardiac, Gallbladder, Hysterectomy, Oophorectomy, Orthopedic Respiratory: No Currently Using CPAP: No Currently Using BIPAP: No Cardiac: Yes (INAPPROPRIATE TACHYCARDIA--S/P CARDIAC ABLATION;PERICARDITIS POST PROCEDURE) Irregular Heartbeat, Pericarditis, Syncope Neurological: Yes Concussion, Headaches /Migraines Reproductive Disorders: Yes (ovarian cysts; HYST/BSO) Female Reproductive Disorders: Endometriosis, Ovarian Cyst POTABLE WATER TREATMENT OPERATOR History: Hysterectomy Sexually Transmitted Disease: No Genitourinary: No Gastrointestinal: Yes (S/P CHALO AND APPY) Gall Bladder Disease Musculoskeletal: Yes (RIGHT FOOT TARSAL TUNNEL RELEASE) Endocrine: No HEENT: No Cancer: No Psychosocial: Yes Anxiety Integumentary: No Blood Disorders: No Adverse Reaction/Blood Tranf: No Family Medical History No Pertinent Family Hx Physical Exam Vital Signs Vital Signs - First Documented 03/07/23 22:42 Pulse 96 Resp 18 B/P (MAP) 96/71 (79) Pulse Ox 98 O2 Delivery Room Air Capillary Refill : Height/Weight/BMI Height: 5'8.00" Weight: 120lbs. 0.0oz. 54.183407il; 20.92 BMI Method:Stated General Appearance: WD/WN, thin HEENT: PERRL/EOMI Neck: normal inspection Respiratory: normal breath sounds, no respiratory distress, no accessory muscle use Cardiovascular: regular rate, rhythm, no murmur, extra beats (OCCASIONAL ECTOPIC BEATS) Gastrointestinal: normal bowel sounds, non tender, soft, no organomegaly, no pulsatile mass Extremities: normal inspection, normal capillary refill Back: no CVA tenderness Neurologic/Psychiatric: senior oracle database developer II-XII nml as tested, no motor/sensory deficits, alert, normal mood/affect, oriented x 3 Skin: normal color, warm/dry Progress/Results/Core Measures Results/Orders Lab Results Laboratory Tests Test 03/07/23 22:55 03/07/23 23:04 Range/Units White Blood Count 5.0 4.3-11.0 10^3/uL Red Blood Count 4.83 3.80-5.11 10^6/uL Hemoglobin 14.1 11.5-16.0 g/dL Hematocrit 41 35-52 % Mean Corpuscular Volume 85 80-99 fL Mean Corpuscular Hemoglobin 29 25-34 pg Mean Corpuscular Hemoglobin Concent 34 32-36 g/dL Red Cell Distribution Width 12.9 10.0-14.5 % Platelet Count 180 130-400 10^3/uL Mean Platelet Volume 9.8 9.0-12.2 fL Immature Granulocyte % (Auto) 0 % Neutrophils (%) (Auto) 78 H 42-75 % Lymphocytes (%) (Auto) 15 12-44 % Monocytes (%) (Auto) 6 0-12 % Eosinophils (%) (Auto) 1 0-10 % Basophils (%) (Auto) 0 0-10 % Neutrophils # (Auto) 3.9 1.8-7.8 10^3/uL Lymphocytes # (Auto) 0.8 L 1.0-4.0 10^3/uL Monocytes # (Auto) 0.3 0.0-1.0 10^3/uL Eosinophils # (Auto) 0.0 0.0-0.3 10^3/uL Basophils # (Auto) 0.0 0.0-0.1 10^3/uL Immature Granulocyte # (Auto) 0.0 0.0-0.1 10^3/uL Sodium Level 140 135-145 MMOL/L Potassium Level 2.9 L 3.6-5.0 MMOL/L Chloride Level 107 98-107 MMOL/L Carbon Dioxide Level 23 21-32 MMOL/L Anion Gap 10 5-14 MMOL/L Blood Urea Nitrogen 14 7-18 MG/DL Creatinine 0.81 0.60-1.30 MG/DL Estimat Glomerular Filtration Rate 98 BUN/Creatinine Ratio 17 Glucose Level 105 70-105 MG/DL Calcium Level 8.3 L 8.5-10.1 MG/DL Corrected Calcium 8.2 L 8.5-10.1 MG/DL Magnesium Level 1.8 1.6-2.4 MG/DL Total Bilirubin 0.7 0.1-1.0 MG/DL Aspartate Amino Transf (AST/SGOT) 31 5-34 U/L Alanine Aminotransferase (ALT/SGPT) 26 0-55 U/L Alkaline Phosphatase 50 40-136 U/L Total Protein 6.3 L 6.4-8.2 GM/DL Albumin 4.1 3.2-4.5 GM/DL Amylase Level 49 25-125 U/L Lipase 21 8-78 U/L Urine Color YELLOW Urine Clarity CLEAR Urine pH 5.5 5-9 Urine Specific [place] >=1.030 1.016-1.022 Urine Protein TRACE H NEGATIVE Urine Glucose (UA) NEGATIVE NEGATIVE Urine Ketones TRACE H NEGATIVE Urine Nitrite NEGATIVE NEGATIVE Urine Bilirubin 1+ H NEGATIVE Urine Urobilinogen 1.0 < = 1.0 MG/DL Urine Leukocyte Esterase NEGATIVE NEGATIVE Urine RBC (Auto) 1+ H NEGATIVE Urine RBC 0-2 /HPF Urine WBC NONE /HPF Urine Squamous Epithelial Cells 5-10 /HPF Urine Crystals NONE /LPF Urine Bacteria MODERATE H /HPF Urine Casts NONE /LPF Urine Mucus LARGE H /LPF Urine Culture Indicated NO My Orders Orders - IRAM DAVIS DO Ed Iv/Invasive Line Start (03/07/23 22:38) Monitor-Rhythm Ecg Trace Only (03/07/23 22:38) Amylase (03/07/23 22:38) Cbc With Automated Diff (03/07/23 22:38) Comprehensive Metabolic Panel (03/07/23 22:38) Lipase (03/07/23 22:38) Magnesium (03/07/23 22:38) Ua Culture If Indicated (03/07/23 22:38) Ed Iv/Invasive Line Start (03/07/23 22:39) Ondansetron Injection (Zofran Injectio (03/07/23 22:45) Lactated Ringers (Lr 1000 Ml Iv Solution (03/07/23 22:39) Ondansetron Injection (Zofran Injectio (03/07/23 23:00) Pantoprazole Injection (Protonix Injecti (03/07/23 23:00) Metoclopramide Injection (Reglan Injecti (03/07/23 23:15) Ed Iv/Invasive Line Start (03/07/23 23:29) Lactated Ringers (Lr 1000 Ml Iv Solution (03/07/23 23:30) Potassium Chloride (Tablet) (Klor Con Ta (03/08/23 00:00) Rx-Metoclopramide Tab (Rx-Reglan Tab) (03/08/23 00:13) Metoclopramide Tablet (Reglan Tablet) (03/08/23 00:30) Ondansetron Injection (Zofran Injectio (03/07/23 22:47) Pantoprazole Injection (Protonix Injecti (03/07/23 22:47) Medications Given in ED Current Medications Medications Dose Ordered Sig/Owen Route Start Time Stop Time Status Last Admin Dose Admin Lactated Ringer's 1,000 ml @ 0 mls/hr Q0M ONCE IV 03/07/23 23:30 03/07/23 23:31 DC 03/07/23 23:35 1,000 MLS/HR Metoclopramide HCl 10 mg ONCE ONCE IVP 03/07/23 23:15 03/07/23 23:16 DC 03/07/23 23:21 10 MG Metoclopramide HCl 10 mg ONCE ONCE PO 03/08/23 00:30 03/08/23 00:31 DC 03/08/23 00:29 10 MG Ondansetron HCl 4 mg ONCE ONCE IVP 03/07/23 22:45 03/07/23 22:46 DC 03/07/23 22:53 4 MG Ondansetron HCl 4 mg ONCE ONCE IVP 03/07/23 23:00 03/07/23 23:01 DC 03/07/23 22:53 4 MG Pantoprazole 40 mg ONCE ONCE IV 03/07/23 23:00 03/07/23 23:01 DC 03/07/23 22:54 40 MG Potassium Chloride 40 meq ONCE ONCE PO 03/08/23 00:00 03/08/23 00:01 DC 03/08/23 00:02 40 MEQ Vital Signs/I&O 03/07/23 03/08/23 22:42 00:30 Pulse 96 91 Resp 18 20 B/P (MAP) 96/71 (79) 101/69 Pulse Ox 98 100 O2 Delivery Room Air Room Air Progress Progress Note : Progress Note GIVEN: -IV FLUIDS -ZOFRAN--NO SIGNFICANT RELIEF -PROTONIX -REGLAN--NAUSEA RELIEVED -KCL NO VOMITING OR DIARRHEA DURING ER STAY PT STATES SHE FEELS MUCH BETTER, NAUSEA IS GONE AND PAIN/BURNING IN ABDOMEN AND CHEST IS GONE/MUCH BETTER NO FEVER DURING ER STAY VITALS STABLE WITH HR IN 80'S, BP STABLE IN THE 90'S SYSTOLIC--PT STATES IS NORMAL FOR HER. POTASSIUM LEVEL IS LOW AT 2.9 PT STATES SHE HAS HAD ISSUES WITH LOW POTASSIUM IN THE PAST, AND DOES HAVE POTASSIUM 20 MEQ AT HOME IF NEEDED. REMAINDER OF LAB TESTS ARE FAIRLY UNREMARKABLE. DISCUSSED ANTICIPATED COURSE, DIET, MEDICATIONS, NEED FOR FOLLOW UP AND RETURN PRECAUTIONS. Departure Impression Primary Impression: Gastroenteritis Additional Impressions: Dehydration Hypokalemia Disposition: HOME, SELF-CARE Condition: Improved Departure-Patient Inst. Decision time for Depature: 00:15 Referrals: ROQUE CHAPMAN DO (PCP/Family) Primary Care Physician Patient Instructions: Viral Gastroenteritis, Adult (DC), Dehydration, Adult ED Add. Discharge Instructions: LOTS OF CLEAR LIQUIDS--WATER, BROTH, JELLO, GATORADE WHEN YOUR NAUSEA IS BETTER, ADD BRATS DIET TO CLEAR LIQUIDS--BANANAS, RICE, APPLESAUCE, TOAST, SALTINES YOU MAY CONTINUE ZOFRAN AND/OR PHENERGAN NEEDED YOU MAY TAKE REGLAN EVERY 6 HOURS NEEDED FOR NAUSEA/VOMITING NOT RELIEVED WITH ZOFRAN OR PHENERGAN CONTINUE YOUR REGULAR MEDICATIONS PRESCRIBED FOLLOW UP WITH YOUR DR IN 1-2 DAYS IF NO BETTER, RETURN TO ER IF WORSE Scripts Pantoprazole Sodium (Protonix) 40 Mg Tablet.dr 40 MG PO DAILY, #15 TAB Prov: IRAM DAVIS DO 03/08/23 Metoclopramide HCl (Reglan) 10 Mg Tablet 10 MG PO Q6H for Nausea/Vomiting, #10 TAB Prov: IRAM DAVIS DO 03/08/23 IRAM DAVIS DO March 07, 2023 22:55
[2023-03-07] MEDS ORDERED: PANTOPRAZOLE 40 MG (PROTONIX) VIAL IV ONE (23:00)
[2023-03-07 23:04] LABS: BASOPHILS % (AUTO) 0 % (0-10); EOSINOPHILS % (AUTO) 1 % (0-10); HEMATOCRIT 41 % (35-52); HEMOGLOBIN 14.1 g/dL (11.5-16.0); LYMPHOCYTES # (AUTO) 0.8 10^3/uL (1.0-4.0); LYMPHOCYTES % (AUTO) 15 % (12-44); MEAN CORPUSCULAR HEMOGLOBIN 29 pg (25-34); MEAN CORPUSCULAR HGB CONC 34 g/dL (32-36); MEAN CORPUSCULAR VOLUME 85 fL (80-99); MEAN PLATELET VOLUME 9.8 fL (9.0-12.2); MONOCYTES # (AUTO) 0.3 10^3/uL (0.0-1.0); MONOCYTES % (AUTO) 6 % (0-12); NEUTROPHILS # (AUTO) 3.9 10^3/uL (1.8-7.8); NEUTROPHILS % (AUTO) 78 % (42-75); PLATELET COUNT 180 10^3/uL (130-400)
[2023-03-07 23:11] LABS: CLARITY,URINE CLEAR; COLOR,URINE YELLOW; GLUCOSE, URINE (UA) NEGATIVE (NEGATIVE); KETONES,URINE TRACE (NEGATIVE); LEUKOCYTE ESTERASE ,URINE NEGATIVE (NEGATIVE); NITRITE,URINE NEGATIVE (NEGATIVE); PH,URINE 5.5 (5-9); PROTEIN,URINE TRACE (NEGATIVE)
[2023-03-07] MEDS ORDERED: METOCLOPRAMIDE INJ 10 MG/2 ML (REGLAN) IVP ONE (23:15)
[2023-03-07 23:19] LABS: BACTERIA,URINE MODERATE /HPF; RBC,URINE 0-2 /HPF
[2023-03-07 23:20] LABS: BILIRUBIN,URINE 1+ (NEGATIVE)
[2023-03-07 23:25] LABS: ALBUMIN 4.1 GM/DL (3.2-4.5); BILIRUBIN,TOTAL 0.7 MG/DL (0.1-1.0); CALCIUM 8.3 MG/DL (8.5-10.1); CREATININE SERUM 0.81 MG/DL (0.60-1.30); MAGNESIUM 1.8 MG/DL (1.6-2.4); POTASSIUM 2.9 MMOL/L (3.6-5.0); TOTAL PROTEIN 6.3 GM/DL (6.4-8.2)
[2023-03-07] MEDS ORDERED: LACTATED RINGERS 1,000 ML IV ONE (23:30)
[2023-03-08] MEDS ORDERED: KCL 10 MEQ TAB (MICRO K) PO ONE
[2023-03-08] MEDS ORDERED: RX-METOCLOPRAMIDE 5 MG (REGLAN) TAB PPK#8 PO STA (00:13)
[2023-03-08] MEDS ORDERED: PANT40TA2 PO (00:17)
[2023-03-08] MEDS ORDERED: METO-310 PO (00:17)
[2023-03-08 00:30] VITALS: BP 101/69
[2023-03-08] MEDS ORDERED: METOCLOPRAMIDE 10 MG (REGLAN) TAB PO ONE (00:30)
== END 2023-03-08 00:30 | disposition home or self-care (01) ==
LOC: EDUNIT# 22:36 → ER 22:38
DX: K52.9 Noninfective gastroenteritis and colitis, unspecified (principal); E86.0 Dehydration; E87.6 Hypokalemia; Z90.49 Acquired absence of other specified parts of digestive tract
CPT/HCPCS: 36415; 80053; 81000; 82150; 83690; 83735; 85025; 93041

== ENCOUNTER → 2023-04-13 | Outpatient (CLI) | payer BC ==
[~2023-04-13] MED LIST changes: +METO-310 PO
--- NOTE | 2023-04-13 12:29 | Diagnostic Imaging Report ---
PROCEDURE: MRI left upper extremity without contrast. TECHNIQUE: Multiplanar, multisequence non contrast-enhanced MRI of the left upper extremity was accomplished. INDICATION: Left hand pain, left thumb injury with pain. COMPARISON: None FINDINGS: No acute fracture seen in the left thumb. Alignment appears normal. There is minimal bone marrow edema at the dorsal aspect of the left thumb proximal phalangeal base. Joint spaces are preserved. There is no significant joint effusion. Extensor tendons appear intact. Flexor tendons appear intact. There may be a low-grade partial tear of the phalangeal attachment of the ulnar collateral ligament of the 1st MCP joint (image 5 and 6 of series 6). There is no evidence of a Stener lesion. No muscular atrophy or edema is seen. No soft tissue masses or fluid collections are identified. IMPRESSION: 1. Partial tear of the ulnar collateral ligament of the left 1st MCP joint. 2. Mild bone marrow edema of the 1st proximal phalangeal base. No fracture is seen. Dictated by: Dictated on workstation # [id number]
== END ==
LOC: RAD 07:29
PROVIDERS: ATTEND Nurse Practitioner
DX: S63.642A Sprain of metacarpophalangeal joint of left thumb, initial encounter (principal); R60.9 Edema, unspecified
CPT/HCPCS: 73218

== ENCOUNTER 2023-04-20 23:08 | Emergency (ER) | payer BC ==
[~2023-04-20] VITALS: Ht 172.7 cm; Wt 56.7 kg
[2023-04-20] MEDS ORDERED: LACTATED RINGERS 1,000 ML IV ONE (23:15)
[2023-04-20 23:28] LABS: BASOPHILS % (AUTO) 0 % (0-10); EOSINOPHILS % (AUTO) 0 % (0-10); HEMATOCRIT 42 % (35-52); HEMOGLOBIN 14.1 g/dL (11.5-16.0); LYMPHOCYTES # (AUTO) 1.3 10^3/uL (1.0-4.0); LYMPHOCYTES % (AUTO) 14 % (12-44); MEAN CORPUSCULAR HEMOGLOBIN 29 pg (25-34); MEAN CORPUSCULAR HGB CONC 33 g/dL (32-36); MEAN CORPUSCULAR VOLUME 87 fL (80-99); MEAN PLATELET VOLUME 9.8 fL (9.0-12.2); MONOCYTES # (AUTO) 0.2 10^3/uL (0.0-1.0); MONOCYTES % (AUTO) 2 % (0-12); NEUTROPHILS # (AUTO) 8.1 10^3/uL (1.8-7.8); NEUTROPHILS % (AUTO) 84 % (42-75); PLATELET COUNT 254 10^3/uL (130-400); WHITE BLOOD COUNT 9.6 10^3/uL (4.3-11.0)
[2023-04-20] MEDS ORDERED: PANTOPRAZOLE 40 MG (PROTONIX) VIAL IV ONE (23:30)
[2023-04-20] MEDS ORDERED: METOCLOPRAMIDE INJ 10 MG/2 ML (REGLAN) IVP ONE (23:30)
[2023-04-20 23:34] LABS: ALBUMIN 4.3 GM/DL (3.2-4.5)
[2023-04-20 23:35] LABS: POTASSIUM 3.9 MMOL/L (3.6-5.0)
[2023-04-20 23:36] LABS: CALCIUM 8.9 MG/DL (8.5-10.1)
[2023-04-20 23:37] LABS: TOTAL PROTEIN 6.7 GM/DL (6.4-8.2)
[2023-04-20 23:39] LABS: BILIRUBIN,TOTAL 0.3 MG/DL (0.1-1.0)
[2023-04-20 23:40] LABS: BILIRUBIN,URINE NEGATIVE (NEGATIVE); CLARITY,URINE CLEAR; COLOR,URINE YELLOW; GLUCOSE, URINE (UA) NEGATIVE (NEGATIVE); KETONES,URINE NEGATIVE (NEGATIVE); LEUKOCYTE ESTERASE ,URINE NEGATIVE (NEGATIVE); NITRITE,URINE NEGATIVE (NEGATIVE); PROTEIN,URINE NEGATIVE (NEGATIVE)
[2023-04-20 23:41] LABS: CREATININE SERUM 0.72 MG/DL (0.60-1.30)
[2023-04-20 23:44] LABS: MAGNESIUM 2.1 MG/DL (1.6-2.4)
[2023-04-20 23:49] LABS: BACTERIA,URINE TRACE /HPF; SQUAMOUS EPITHELIAL CELL,UR 0-2 /HPF
[2023-04-21 00:28] VITALS: BP 112/76
--- NOTE | 2023-04-21 07:29 | ED GI ---
General Chief Complaint: Abdominal/GI Problems Stated Complaint: ABD PAIN Nursing Triage Note: PT AMB TO ED BY POV WITH C/O ABD PAIN. 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 LBM TODAY, NORMAL FOR PT. DENIES URINARY SX OR FEVER. Source of Information: Patient History of Present Illness Date Seen by Provider: Apr 20, 2023 Time Seen by Provider: 23:17 Allergies and Home Medications Allergies Coded Allergies: Sulfa (Sulfonamide Antibiotics) (Unverified Allergy, Severe, Anaphylaxis, 06/03/22) Cephalosporins (Unverified Allergy, Unknown, Hives, 05/27/22) Patient Home Medication List Ibuprofen (Ibu) 600 Mg Tablet, 600 MG PO Q6H Prescribed by: Jodi Gardner on 06/03/22 0909 Levocetirizine Dihydrochloride (Xyzal) 5 Mg Tablet, 5 MG PO DAILY, (Reported) Entered as Reported by: BRENT SOLOMON on 08/31/21 1355 Metoclopramide HCl (Reglan) 10 Mg Tablet, 10 MG PO Q6H Prescribed by: IRAM DAVIS on 03/08/23 001 Montelukast Sodium (Singulair) 10 Mg Tablet, 10 MG PO DAILY, (Reported) Entered as Reported by: BRENT SOLOMON on 08/31/21 1355 Naratriptan HCl (Naratriptan HCl) 2.5 Mg Tablet, 2.5 MG PO UD PRN for MIGRAINE, (Reported) Entered as Reported by: MEAGAN MARQUIS on 09/23/15 0920 Oxycodone Hcl (Oxyir Tablet) 5 Mg Tab, 5 MG PO Q4HR PRN for PAIN-SEE DOSE INSTRUCTIONS Prescribed by: Jodi Gardner on 06/03/22 0909 Pantoprazole Sodium (Protonix) 40 Mg Tablet.dr, 40 MG PO DAILY Prescribed by: IRAM DAVIS on 03/08/23 001 Past Rtlljdb-Ymydgy-Gkvssa Hx Patient Social History Tobacco Use?: No Use of E-Cig and/or Vaping dev: No Substance use?: No Alcohol Use?: Yes Alcohol Frequency: Once in a while Pt feels they are or have been: No Immunizations Up To Date Tetanus Booster (TDap): More than 5yrs PED Vaccines UTD: No Influenza Vaccine Up-to-Date: Yes; Up-to-Date First/Initial COVID19 Vaccinat: SEPTEMBER 2020 Second COVID19 Vaccination Logan: OCTOBER 2020 Third COVID19 Vaccination Date: SEPTEMBER 2020 Seasonal Allergies Seasonal Allergies: Yes Past Medical History Surgery/Hospitalization HX: LOOP RECORDER 09/2020 Surgeries: Yes (septoplasty/sinus surg;L FOOT SX;R FOOT TARSAL TUNNEL RELEASE;CARDIAC ABLAT) Appendectomy, Cardiac, Gallbladder, Hysterectomy, Oophorectomy, Orthopedic Respiratory: No Currently Using CPAP: No Currently Using BIPAP: No Cardiac: Yes (INAPPROPRIATE TACHYCARDIA--S/P CARDIAC ABLATION;PERICARDITIS POST PROCEDURE) Irregular Heartbeat, Pericarditis, Syncope Neurological: Yes Concussion, Headaches /Migraines Reproductive Disorders: Yes (ovarian cysts; HYST/BSO) Female Reproductive Disorders: Endometriosis, Ovarian Cyst FLEECER History: Hysterectomy Sexually Transmitted Disease: No Genitourinary: No Gastrointestinal: Yes (S/P CHALO AND APPY) Gall Bladder Disease Musculoskeletal: Yes (RIGHT FOOT TARSAL TUNNEL RELEASE) Endocrine: No HEENT: No Cancer: No Psychosocial: Yes Anxiety Integumentary: No Blood Disorders: No Adverse Reaction/Blood Tranf: No Family Medical History No Pertinent Family Hx Physical Exam Vital Signs Vital Signs - First Documented 04/20/23 23:14 Temp 36.0 Pulse 95 Resp 16 B/P (MAP) 123/74 (90) Pulse Ox 98 O2 Delivery Room Air Capillary Refill : Less Than 3 Seconds Height/Weight/BMI Height: 5'8.00" Weight: 120lbs. 0.0oz. 54.775920fn; 19.00 BMI Method:Stated Progress/Results/Core Measures Results/Orders Lab Results Laboratory Tests Test 04/20/23 23:17 04/20/23 23:32 Range/Units White Blood Count 9.6 4.3-11.0 10^3/uL Red Blood Count 4.90 3.80-5.11 10^6/uL Hemoglobin 14.1 11.5-16.0 g/dL Hematocrit 42 35-52 % Mean Corpuscular Volume 87 80-99 fL Mean Corpuscular Hemoglobin 29 25-34 pg Mean Corpuscular Hemoglobin Concent 33 32-36 g/dL Red Cell Distribution Width 12.6 10.0-14.5 % Platelet Count 254 130-400 10^3/uL Mean Platelet Volume 9.8 9.0-12.2 fL Immature Granulocyte % (Auto) 0 % Neutrophils (%) (Auto) 84 H 42-75 % Lymphocytes (%) (Auto) 14 12-44 % Monocytes (%) (Auto) 2 0-12 % Eosinophils (%) (Auto) 0 0-10 % Basophils (%) (Auto) 0 0-10 % Neutrophils # (Auto) 8.1 H 1.8-7.8 10^3/uL Lymphocytes # (Auto) 1.3 1.0-4.0 10^3/uL Monocytes # (Auto) 0.2 0.0-1.0 10^3/uL Eosinophils # (Auto) 0.0 0.0-0.3 10^3/uL Basophils # (Auto) 0.0 0.0-0.1 10^3/uL Immature Granulocyte # (Auto) 0.0 0.0-0.1 10^3/uL Sodium Level 141 135-145 MMOL/L Potassium Level 3.9 3.6-5.0 MMOL/L Chloride Level 109 H 98-107 MMOL/L Carbon Dioxide Level 23 21-32 MMOL/L Anion Gap 9 5-14 MMOL/L Blood Urea Nitrogen 17 7-18 MG/DL Creatinine 0.72 0.60-1.30 MG/DL Estimat Glomerular Filtration Rate 113 BUN/Creatinine Ratio 24 Glucose Level 148 H 70-105 MG/DL Calcium Level 8.9 8.5-10.1 MG/DL Corrected Calcium 8.7 8.5-10.1 MG/DL Magnesium Level 2.1 1.6-2.4 MG/DL Total Bilirubin 0.3 0.1-1.0 MG/DL Aspartate Amino Transf (AST/SGOT) 48 H 5-34 U/L Alanine Aminotransferase (ALT/SGPT) 34 0-55 U/L Alkaline Phosphatase 49 40-136 U/L Total Protein 6.7 6.4-8.2 GM/DL Albumin 4.3 3.2-4.5 GM/DL Amylase Level 64 25-125 U/L Lipase 42 8-78 U/L Urine Color YELLOW Urine Clarity CLEAR Urine pH 6.0 5-9 Urine Specific [place] 1.025 H 1.016-1.022 Urine Protein NEGATIVE NEGATIVE Urine Glucose (UA) NEGATIVE NEGATIVE Urine Ketones NEGATIVE NEGATIVE Urine Nitrite NEGATIVE NEGATIVE Urine Bilirubin NEGATIVE NEGATIVE Urine Urobilinogen 0.2 < = 1.0 MG/DL Urine Leukocyte Esterase NEGATIVE NEGATIVE Urine RBC (Auto) TRACE-I H NEGATIVE Urine RBC 2-5 H /HPF Urine WBC NONE /HPF Urine Squamous Epithelial Cells 0-2 /HPF Urine Crystals NONE /LPF Urine Bacteria TRACE /HPF Urine Casts NONE /LPF Urine Mucus SMALL H /LPF Urine Culture Indicated NO My Orders Orders - IRAM DAVIS DO Ed Iv/Invasive Line Start (04/20/23 23:15) Monitor-Rhythm Ecg Trace Only (04/20/23 23:15) Amylase (04/20/23 23:15) Cbc With Automated Diff (04/20/23 23:15) Comprehensive Metabolic Panel (04/20/23 23:15) Lipase (04/20/23 23:15) Magnesium (04/20/23 23:15) Ua Culture If Indicated (04/20/23 23:15) Ed Iv/Invasive Line Start (04/20/23 23:15) Lactated Ringers (Lr 1000 Ml Iv Solution (04/20/23 23:15) Metoclopramide Injection (Reglan Injecti (04/20/23 23:30) Pantoprazole Injection (Protonix Injecti (04/20/23 23:30) Medications Given in ED Current Medications Medications Dose Ordered Sig/Owen Route Start Time Stop Time Status Last Admin Dose Admin Lactated Ringer's 1,000 ml @ 0 mls/hr Q0M ONCE IV 04/20/23 23:15 04/20/23 23:17 DC 04/20/23 23:26 0 MLS/HR Metoclopramide HCl 10 mg ONCE ONCE IVP 04/20/23 23:30 04/20/23 23:31 DC 04/20/23 23:26 10 MG Pantoprazole 40 mg ONCE ONCE IV 04/20/23 23:30 04/20/23 23:31 DC 04/20/23 23:26 40 MG Vital Signs/I&O 04/20/23 04/21/23 23:14 00:28 Temp 36.0 Pulse 95 82 Resp 16 18 B/P (MAP) 123/74 (90) 112/76 Pulse Ox 98 99 O2 Delivery Room Air Room Air Blood Pressure Mean: 88 Progress Progress Note : Progress Note COMPUTER SYSTEM SHUT DOWN DURING PT'S ER STAY Departure Impression Disposition: 01 HOME, SELF-CARE Condition: Stable Departure-Patient Inst. Referrals: ROQUE CHAPMAN DO (PCP) Primary Care Physician IRAM DAVIS DO Apr 21, 2023 07:29
== END 2023-04-21 00:28 | disposition home or self-care (01) ==
LOC: EDUNIT# 23:08 → ER 23:10
DX: R10.13 Epigastric pain (principal)
CPT/HCPCS: 36415; 80053; 81000; 82150; 83690; 83735; 85025; 93041; 96361; 96374; 96375

== ENCOUNTER 2023-07-13 09:15 | Outpatient (RCR) | payer BC | END 2023-07-16 | disposition home or self-care (01) | PROVIDERS: ATTEND Nurse Practitioner | DX: M79.642 Pain in left hand (principal) ==

== ENCOUNTER 2023-08-15 10:44 | Outpatient (RCR) | payer BC | END 2023-08-15 12:30 | disposition home or self-care (01) | PROVIDERS: ATTEND Nurse Practitioner | DX: M79.642 Pain in left hand (principal) ==